=== PATIENT | female | born 1940 | race Caucasian/White ===

== ENCOUNTER 2018-10-30 09:30 | Inpatient (IN) ==
--- NOTE | 2018-10-30 10:08 | ED ---
HPI General Chief Complaint: Trauma Stated Complaint: Fracture Complaint Time Seen by Provider: 10/30/18 09:45 Source: patient, EMS and RN notes reviewed Mode of arrival: EMS Limitations: physical limitation History of Present Illness HPI Narrative: 78-year-old female complains of neck pain. Patient states that she fell yesterday. Patient was found by family member which in between her bed and the wall and had difficulty in getting up. Patient apparently was found lying on the floor for at least 5 hours. Patient was seen at emergency room at [facility] in [facility]. CT scan of the brain and cervical spine were done. CT scan of the brain showed no acute injury. CT cervical spine shows fracture at C1 and possible C2 and possible epidural hematoma dorsal to C2. Neurosurgeon at [facility] was contacted. Patient was transferred to [facility] for further treatment and management. Patient complains of sharp pain localized to the neck. Patient denies any headache. Patient denies any visual change. Patient denies any chest pain or shortness of breath. Patient denies abdominal pain. Patient denies any focal weakness or numbness of the extremity. Patient has history hypertension, hyperlipidemia and rheumatoid arthritis. MD complaint: Reports neck pain Onset (ago): day(s) Place: Reports home Severity: moderate Severity scale (1-10): 7 Quality: Reports sharp Duration: constant Relieving factors: none Exacerbating factors: none Context: Reports fall Associated symptoms: Reports none Treatments prior to arrival: Reports cervical collar Related Data Allergies Allergy/AdvReac Type Severity Reaction Status Date / Time hydroxychloroquine Allergy Unknown Unknown Verified 10/30/18 09:49 cephalexin [From Keflex] Allergy Unknown Verified 10/30/18 09:49 Review of Systems ROS: all other systems reviewed are negative PMFSH History History Provided By: Patient, Medical Record and Court Stenographer / EMT Social History Social History Recent Travel in [facility] within the Last 8 Weeks: No Recent Out of Country Travel within the Last 8 Weeks: No Exam Narrative Exam Narrative: GENERAL: Well-nourished, well-developed patient. SKIN: Focused skin assessment warm/dry. HEAD: Normocephalic. EYES: No scleral icterus. No injection or drainage. NECK: Supple, trachea midline. No JVD or lymphadenopathy. Patient has c-collar in place. CARDIOVASCULAR: Regular rate and rhythm without murmurs, gallops, or rubs. RESPIRATORY: Breath sounds equal bilaterally. No accessory muscle use. GASTROINTESTINAL: Abdomen soft, non-tender, nondistended. MUSCULOSKELETAL: No cyanosis, or edema. BACK: Nontender without obvious deformity. No CVA tenderness. Neurologic exam: Patient is awake and alert oriented x3. No obvious focal logical deficit. Course Initial Documented Vital Signs Temperature 98.6 F 10/30/18 09:50 Pulse Rate 58 L 10/30/18 09:50 Respiratory Rate 17 10/30/18 09:50 Blood Pressure 148/69 H 10/30/18 09:50 Pulse Oximetry 95 10/30/18 09:50 Last Documented Vital Signs Temperature 98.6 F 10/30/18 09:50 Pulse Rate 58 L 10/30/18 09:50 Respiratory Rate 17 10/30/18 09:50 Blood Pressure 148/69 H 10/30/18 09:50 Pulse Oximetry 95 10/30/18 09:50 Medical Decision Making MDM Narrative Medical decision making narrative: 78-year-old female complains of neck pain. CT scan shows fractures of C1 possible C2 and possible epidural hematoma. Patient will be admitted to [facility] with consultation to neurosurgeon. [place] collar applied. Medical Screen Exam Complete: Yes Emergency Medical Condition: Yes Discharge Plan Discharge Disposition Patient Disposition: ED Admit(ED Internal Use Only) Discharge Details Diagnosis: Fracture of cervical vertebra without spinal cord injury Physicians Team ED Provider: Claudio Elias Status ED Status: With Doctor
--- NOTE | 2018-10-30 10:13 | XR ---
EXAM DATE: 10/30/2018 10:06 AM EST AGE/SEX: 78 years / Female INDICATIONS: Evaluate for communicable disease, pneumonia, pneumothorax. CLINICAL DATA: This is the patient's initial encounter. Patient reports that signs and symptoms have been present for 1 day and indicates a pain score of 0/10. MEDICAL/SURGICAL HISTORY: None. None. COMPARISON: POI, XR CHEST PA AND LAT, 09/20/2016. . FINDINGS: There is elevation of the right hemidiaphragm. The heart is mildly prominent. Mild perihilar infiltra perry are noted consistent with possible mild pulmonary vascular congestion versus pneumonia. Clinical correlation is recommended. CONCLUSION: 1. Mild perihilar infiltrates are noted consistent with possible mild pulmonary vascular congestion versus pneumonia. Clinical correlation is recommended. 2. Mild cardiomegaly. 3. Elevation of the right hemidiaphragm. Electronically signed by: Giuseppe Whalen MD Board Certified Radiologist 10/30/2018 10:12 AM EST
[2018-10-30] MEDS ORDERED: Bisacodyl 10 MG Supp RECTAL PRN (10:23)
--- NOTE | 2018-10-30 10:33 | P.HPCC ---
History of Present Illness Service: [facility] Chief Complaint: Neck pain History of Present Illness: 78yF presenting with cervical spine injury. The patient lives on her own ( daughter and son-in-law live next door) and says that last night she was trying to move a pillow from her bed to her rocking chair. She is unsure if she tripped but says that she fell forward, hitting her head on the wall and getting wedged between the bed and the wall. She says that she was lying on the floor for most of the night but this morning was able to crawl to the foot of the bed, retrieved her cell phone, and called her daughter for help. She had soiled herself overnight but states that this was because of immobility and not because she couldn't control her bowel/ bladder. She was able to walk to the shower with assistance and bathe before presenting to the ED at [facility]. There, she had a CT of her brain and C spine performed, which showed fractures of C1/C2 and a possible spinal epidural hematoma. She was transferred to [place] for neurosurgical evaluation. She admits to moderate "aching" neck pain but denies numbness/ tingling/ weakness of her extremities, back pain, or saddle anesthesia. She takes 81 mg aspirin daily for a history of CAD s/p stents (in ), last dose yesterday. Denies use of any other anticoagulants/ antiplatelets. Foreign Service Teacher is Dr. Hernandez. History of rheumatoid arthritis, currently on Xeljanz and methotrexate. Inpatient Certification: I certify that the inpatient services were ordered in accordance with Medicare regulations governing the order. This includes certification that hospital inpatient services are reasonable and necessary and in the case of services not specified as inpatient-only under 42 CFR 419.22(n), that they are appropriately provided as inpatient services in accordance to with the 2-midnight benchmark under 43 CFR 412.3(e) Estimated Total Length of Stay (Days): 5 Plans for Post Hospital Care: Not yet determined Review of Systems All other systems reviewed negative except as stated in HPI Constitutional: Denies chills, Denies fever(s) Eyes: Denies double vision Cardiovascular: Denies chest pain Respiratory: Denies cough Gastrointestinal: Denies abdominal pain Musculoskeletal: Reports neck pain, Denies back pain Neurologic: Denies numbness, Denies tingling PMFSH - History History Provided By: Patient, Medical Record, Gel Coater / EMT - Social History I have reviewed the patient's Social History: Yes - Tobacco History Tobacco Use In Past 30 Days: No Smoking Status: Former smoker - Alcohol History How Often Do You Have a Drink Containing Alcohol: Monthly or less - Substance Use History Substance History: No History of Abuse - Travel History Recent Travel in the [place] Within the Last 8 Weeks: No Recent Travel Out of the Country Within the Last 8 Weeks: No Medications and Allergies Active Medications: Active Medications Acetaminophen (Tylenol) 650 mg PO Q6H PRN PRN Reason: PAIN 1-10 AND/OR FEVER >101F Al Hydroxide/Mg Hydroxide (Milk Of Magnesia Liq) 30 ml PO Q12H PRN PRN Reason: Mild Constipation Albuterol (Duoneb Neb (Prn)) 1 ampul NEB Q2HR NEB PRN PRN Reason: WHEEZING Bisacodyl (Dulcolax Supp) 10 mg RECTAL DAILY PRN PRN Reason: SEVERE CONSITIPATION Chlorhexidine Gluconate (Chlorhexidine 2% Cloth) 3 pack TOPICAL DAILY@0400 ERENDIRA Stop: 11/05/18 03:59 Chlorhexidine Gluconate (Chlorhexidine 2% Cloth) 3 pack TOPICAL DAILY@0400 PRN PRN Reason: Extra cloth needed Stop: 11/05/18 03:59 Famotidine (Pepcid) 20 mg PO BID ERENDIRA Famotidine (Pepcid Pf Inj) 20 mg IV.PUSH Q12HR ERENDIRA Sodium Chloride (Ns Inj) 1,000 mls @ 84 mls/hr IV.CONT .[id number] ERENDIRA Lactulose (Lactulose Liq) 30 ml PO DAILY PRN PRN Reason: SEVERE CONSITIPATION Ondansetron HCl (Zofran Inj) 4 mg IV.PUSH Q6H PRN PRN Reason: NAUSEA OR VOMITING Senna/Docusate Sodium (Loulou-Colace) 1 tab PO BID ERENDIRA Sennosides (Senokot) 17.2 mg PO Q12H PRN PRN Reason: Moderate Constipation Sodium Chloride (Ns Flush) 2 ml IV.FLUSH BID ERENDIRA Sodium Chloride (Ns Flush) 2 ml IV.FLUSH PRN PRN PRN Reason: FLUSH AFTER USING IV ACCESS Allergies Allergy/AdvReac Type Severity Reaction Status Date / Time hydroxychloroquine Allergy Unknown Unknown Verified 10/30/18 09:49 cephalexin [From Keflex] Allergy Unknown Verified 10/30/18 09:49 Home Medications Medication Instructions Recorded Confirmed Type amlodipine 2.5 mg PO DAILY 10/30/18 10/30/18 History aspirin 81 mg PO DAILY 10/30/18 10/30/18 History atenolol 50 mg PO DAILY 10/30/18 10/30/18 History atorvastatin 10 mg PO DAILY 10/30/18 10/30/18 History bevacizumab [Avastin] 1 ml 10/30/18 History furosemide 20 mg PO DAILY 10/30/18 10/30/18 History levothyroxine 137 mcg PO DAILY 10/30/18 10/30/18 History methotrexate 10 mg/m2 PO QWEEK 10/30/18 10/30/18 History potassium chloride 10 meq PO DAILY 10/30/18 10/30/18 History Results - Labs CBC & Chem 7: 10/30/18 12:54 10/30/18 12:54 - Imaging Impressions Chest X-Ray 10/30/18 09:49 CONCLUSION: 1. Mild perihilar infiltrates are noted consistent with possible mild pulmonary vascular congestion versus pneumonia. Clinical correlation is recommended. 2. Mild cardiomegaly. 3. Elevation of the right hemidiaphragm. CT cervical spine from [facility]: 1. Acute burst fracture of C1 w 6mm diastasis of the anterior arch, and lateral subluxation of the right lateral mass of C1 relative to the right occipital condyle and C2. Prevertebral soft tissue swelling around C1-2. 2. Acute, nondisplaced comminuted fracture of the right occipital condyle. 3. Punctate acute ossific fracture fragment dorsal to the dens may represent an avulsion fracture of C2. 4. Findings concerning for small epidural hematoma dorsal to C2, resulting in mild canal stenosis at the craniocervical junction. 5. Mild widening of the anterior disc space at C3-4 may indicate disruption of the anterior longitudinal ligament vs. ligamentous laxity secondary to rheumatoid arthritis. 6. Multilevel cervical spondylosis with facet arthropathy resulting in neural foraminal narrowing. CT brain: 1. Age-indeterminate lacunar infarcts involving the right caudate nucleus and right thalamus, likely remote. No acute hemorrhage. 2. Diffuse involutional change and chronic microvascular ischemia. Exam Vital signs: Vital Signs 10/30/18 09:50 Temperature 98.6 F Pulse Rate 58 L Respiratory Rate 17 Blood Pressure 148/69 H Pulse Oximetry 95 Intake & Output 10/29/18 10/30/18 10/30/18 18:59 06:59 18:59 Weight 58.967 kg Narrative: GEN: Pleasant elderly female lying in bed, no acute distress HEENT: No apparent head or facial trauma, pupils 3 mm and reactive bilaterally NECK: Trachea midline, appropriately-sized cervical collar in place CARDIO: Regular rate and rhythm PULM: Clear to auscultation bilaterally ABD/GI: Soft, non-distended, non-tender in all quadrants EXT/MSK: No peripheral edema SKIN: Warm and well-perfused, no rashes or lesions NEURO: GCS 15, A&Ox3, speech clear and fluent, motor strength 5/5 in all extremities, no drift, sensation intact to all extremities, no focal neuro deficits PSYCH: Appropriate affect Caprini VTE Risk Assessment Caprini VTE Risk Assessment: Moderate/High Risk (score >= 2) VTE Pharmacological Exception Reason: Active bleeding Caprini Risk Assessment Model: Point Value = 1 Point Value = 2 Point Value = 3 Point Value = 5 Age 41-60 Minor surgery BMI > 25 kg/m2 Swollen legs Varicose veins or History of unexplained or recurrent spontaneous Oral contraceptives or hormone replacement Sepsis (< 1 month) Serious lung disease, including pneumonia (< 1 month) Abnormal pulmonary function Acute myocardial infarction Congestive heart failure (< 1 month) History of inflammatory bowel disease Medical patient at bed rest Age 61-74 Arthroscopic surgery Major open surgery (> 45 min) Laparoscopic surgery (> 45 min) Malignancy Confined to bed (> 72 hours) Immobilizing plaster cast Central venous access Age >= 75 History of VTE Family history of VTE Factor V Leiden Prothrombin [id number] Lupus anticoagulant Anticardiolipin antibodies Elevated serum homocysteine Heparin-induced thrombocytopenia Other congenital or acquired thrombophilia Stroke (< 1 month) Elective arthroplasty Hip, pelvis, or leg fracture Acute spinal cord injury (< 1 month) Prophylaxis Regimen: Total Risk Factor Score Risk Level Prophylaxis Regimen 0-1 Low Early ambulation 2 Moderate Order ONE of the following: *Sequential Compression Device (SCD) *Heparin 5000 units SQ BID 3-4 Higher Order ONE of the following medications: *Heparin 5000 units SQ TID *Enoxaparin/Lovenox 40 mg SQ daily (WT < 150 kg, CrCl > 30 mL/min) *Enoxaparin/Lovenox 30 mg SQ daily (WT < 150 kg, CrCl > 10-29 mL/min) *Enoxaparin/Lovenox 30 mg SQ BID (WT < 150 kg, CrCl > 30 mL/min) AND/OR *Sequential Compression Device (SCD) 5 or more Highest Order ONE of the following medications: *Heparin 5000 units SQ TID (Preferred with Epidurals) *Enoxaparin/Lovenox 40 mg SQ daily (WT < 150 kg, CrCl > 30 mL/min) *Enoxaparin/Lovenox 30 mg SQ daily (WT < 150 kg, CrCl > 10-29 mL/min) *Enoxaparin/Lovenox 30 mg SQ BID (WT < 150 kg, CrCl > 30 mL/min) AND *Sequential Compression Device (SCD) Assessment and Plan - Assessment and Plan Plan: 78yF presenting with C1/2 spinal fractures and spinal epidural hematoma s/p mechanical fall at home NEURO: C1 burst fracture C2 avulsion fracture Right occipital condyle fracture Suspected spinal epidural hematoma at C2 Suspected disruption of anterior longitudinal ligament -Cervical collar placed, spinal precautions (log roll only, bed rest for now, HOB elevated) -Stat MRI C spine -q1h neuro checks -Avoid anticoagulants/ antiplatelets -Possible ALL injury vs. ligamentous instability (this is known to be associated with rheumatoid arthritis) -Pain control -Neurosurgery consulted (Dr. Galvan) -Consult trauma CARDIO: History of CAD s/p stents History of essential hypertension History of dyslipidemia -Hold aspirin -Check P2Y12 assay -Continue home antihypertensives and statin PULM: -Incentive spirometry F/E/N: -NPO for now -Maintenance fluids -ICU electrolyte protocol MSK/RHEUM: History of rheumatoid arthritis -Continue DMARDs ENDO: History of hypothyroidism -Continue home dose of synthroid PROPHY: -PPI -SCDs, hold chemical prophylaxis as patient has suspected epidural hematoma OVERALL: This patient is critically ill with high C spine injury. She is at high risk for rapid decompensation and requires ICU level of care. Counseling/ Coordination of Care: This patient is critically ill with impairment of one or more vital organ systems with a high probability of imminent or life-threatening deterioration. High-complexity medical decision making was required to support vital organ function and/ or prevent deterioration of the patient's condition. Total critical care time spent is 42 minutes giving full attention to this patient. This includes examining the patient, gathering history from someone other than the patient (i.e. chart review), discussing the patient's care with other providers, ordering and interpreting radiologic studies, ordering and interpreting laboratory values, and documentation. Amount of time is separate from teaching, counseling the patient and/or family, and exclusive of procedures. Code Status: DNR but accepts intubation Discussed Condition With: Dr. Galvan (neurosurgery), Dr. Garcia (trauma)
--- NOTE | 2018-10-30 12:19 | MR ---
EXAM DATE: 10/30/2018 11:59 AM EST AGE/SEX: 78 years / Female INDICATIONS: Fracture. Fall. CLINICAL DATA: This is the patient's initial encounter. Patient reports that signs and symptoms have been present for 1 day and indicates a pain score of 0/10. MEDICAL/SURGICAL HISTORY: Cardiovascular disease. Arthritis. Coronary artery stent. Cholecyst ectomy. Hysterectomy. Bilateral knee replacements. Hand surgeries, feet surgeries. COMPARISON: No prior exams available for comparison. TECHNIQUE: Multiplanar, multisequence MRI examination of the cervical spine was performed without co ntrast. FINDINGS: The marrow signal appears intact, and the spinal cord appears intact for technique. C2-C3: No appreciable compromise to the thecal sac, exiting nerve roots are seen. The neural foramin a are patent bilaterally. No appreciable thecal sac stenosis is seen. C3-C4: There is slight neural foramina compromise on the left due to asymmetrical bulging disc and h ypertrophic changes. There may be slight neural foraminal compromise on the right as well. C4-C5: There is slight neural foramina compromise on the right due to asymmetrical bulging disc and hypertrophic changes. C5-C6: There is slight neural foramina compromise bilaterally due to bulging disc and hypertrophic c hanges. C6-C7: There is slight neural foramina compromise bilaterally due to bulging disc and hypertrophic c hanges. There is anterior extradural impression and effacement of the anterior CSF space due to bulging disc and hypertrophic changes, however overall no significant thecal sac stenosis is seen. There is anterior extradural impression and effacement of the anterior CSF space due to central disc protrusion and hypertrophic changes, however overall no significant thecal sac stenosis is seen. C7-T1: No appreciable compromise to the thecal sac, exiting nerve roots are seen. The neural foramin a are patent bilaterally. No appreciable thecal sac stenosis is seen. CONCLUSION: Neural foramina compromise at multiple levels with effacement of the anterior CSF space C5-6 and C6-7 without any significant thecal sac stenosis. Electronically signed by: Anand Louie MD Board Certified Radiologist 10/30/2018 12:18 PM EST
--- NOTE | 2018-10-30 13:52 | CT ---
EXAM DATE: 10/30/2018 1:32 PM EST AGE/SEX: 78 years / Female INDICATIONS: Trauma, fall. C1 and C2 fracture. Patient transferred from [facility]. CLINICAL DATA: This is the patient's initial encounter. Patient reports that signs and symptoms have been present for 2 days and indicates a pain score of 6/10. MEDICAL/SURGICAL HISTORY: Cardiovascular disease. Arthritis. Cholecystectomy. Hysterectomy. Coronary artery stent. RADIATION DOSE: 17.08 CTDI (mGy) COMPARISON: MRI cervical spine performed the same day. TECHNIQUE: Contiguous axial images were obtained using helical multirow detector technique. The vol umetric data was post-processed with multiplanar reconstruction in oblique axial, sagittal, and coron al planes. Using automated exposure control and adjustment of the mA and/or kV according to patient s ize, radiation dose was kept as low as reasonably achievable to obtain optimal diagnostic quality florencio ges. DICOM format image data is available electronically for review and comparison. FINDINGS: No significant subluxation or soft tissue swelling is seen. There is a fracture of the lateral mass o f C1 on the right side with tiny bony fragment protruding adjacent to the tip of the dens at this sit e. There may be tiny fractures coming off the tip of the dens as well. Questionable hairline fracture of the basiocciput both on the right side as well. C2-C3: No appreciable compromise to the thecal sac, exiting nerve roots are seen. The neural foramin a are patent bilaterally. No appreciable thecal sac stenosis is seen. C3-C4: There is slight neural foramina compromise on the left due to asymmetrical bulging disc and h ypertrophic changes. Slight bulging disc and hypertrophic changes are seen with indentation on the thecal sac and no significant compromise to the thecal sac or the exiting nerve roots. C4-C5: There is slight neural foramina compromise on the right due to asymmetrical bulging disc and hypertrophic changes. Slight bulging disc and hypertrophic changes are seen with indentation on the thecal sac and no significant compromise to the thecal sac or the exiting nerve roots. C5-C6: There is slight neural foramina compromise bilaterally due to bulging disc and hypertrophic c hanges. Slight bulging disc and hypertrophic changes are seen with indentation on the thecal sac an d no significant compromise to the thecal sac or the exiting nerve roots. C6-C7: No appreciable compromise to the thecal sac, exiting nerve roots are seen. The neural foramin a are patent bilaterally. No appreciable thecal sac stenosis is seen. Slight bulging disc and hypertr ophic changes are seen with indentation on the thecal sac and no significant compromise to the thecal sac or the exiting nerve roots. There is anterior extradural impression and effacement of the anter ior CSF space due to central disc protrusion and hypertrophic changes, however overall no significant thecal sac stenosis is seen. C7-T1: No appreciable compromise to the thecal sac, exiting nerve roots are seen. The neural foramin a are patent bilaterally. No appreciable thecal sac stenosis is seen. CONCLUSION: There are fractures of the lateral mass of C1 on the right and basioccipital with tiny b neyda fragment protruding adjacent to the tip of the dens at the junction of the lateral mass of C1 wit hout any significant compromise to the exiting nerve roots or the thecal sac. These fractures were no t appreciated on the patient's MRI examination due to technique and superimposed degenerative changes atlantoaxial space. No appreciable subluxation. Electronically signed by: Anand Louie MD Board Certified Radiologist 10/30/2018 1:50 PM EST
[2018-10-30] MEDS: Atenolol 50 MG Tablet PO SCH (14:00)
[2018-10-30] MEDS: amLODIPine 5 MG Tablet PO SCH (14:00)
[2018-10-30 14:20] LABS: Baso % (Auto) 0.5 % (0.0-2.0); Eos % (Auto) 0.1 % (0.0-4.0); Hematocrit 33.7 % (35.0-46.0); Hemoglobin 11.7 gm/dL (11.6-15.3); Lymph # (Auto) 0.6 th/mm3 (1.0-4.8); Lymph % (Auto) 13.6 % (9.0-44.0); Mean Corpuscular HGB Conc 34.7 % (32.0-36.0); Mean Corpuscular Hemoglobin 30.9 pg (27.0-34.0); Mean Platelet Volume 8.1 fL (7.0-11.0); Mono # (Auto) 0.4 th/mm3 (0.0-0.9); Neut # (Auto) 3.6 th/mm3 (1.8-7.7); Neut % (Auto) 76.8 % (16.0-70.0); Platelet Count 216 th/mm3 (150-450); Red Blood Count 3.79 mil/mm3 (4.00-5.30); Red Cell Distribution Width 15.2 % (11.6-17.2); White Blood Count 4.7 th/mm3 (4.0-11.0)
[2018-10-30 14:25] LABS: INR 1.1 Ratio; Prothrombin Time 10.8 sec (9.8-11.6)
[2018-10-30 14:36] LABS: Albumin 3.7 g/dL (3.4-5.0); Anion Gap 9 meq/L (5-15); Aspartate Aminotransferase 142 U/L (15-37); Blood Urea Nitrogen 13 mg/dL (7-18); Calcium 8.5 mg/dL (8.5-10.1); Carbon Dioxide 27.5 meq/L (21.0-32.0); Chloride 100 meq/L (98-107); Glomerular Filtration Rate 78 mL/min (>89); Glucose,Random 111 mg/dL (74-106); Potassium 3.6 meq/L (3.5-5.1); Sodium 136 meq/L (136-145)
[2018-10-30 14:38] LABS: Creatine Kinase 126 U/L (26-192)
[2018-10-30 14:39] LABS: Alanine Aminotransferase 73 U/L (10-53); Alkaline Phosphatase 100 U/L (45-117); Total Protein 7.8 g/dL (6.4-8.2)
[2018-10-30] MEDS ORDERED: Potassium Chlor 40 mEq Premix 40 MEQ/100 ML PIGGYBACK IV.SIG PRN ×2 (14:39)
[2018-10-30] MEDS ORDERED: Magnesium Sulfate Inj 2 GM in Sodium Chlor 0.9% Inj 96 ML IV.SIG PRN (14:39)
[2018-10-30] MEDS ORDERED: Magnesium Sulfate Inj 4 GM in Sodium Chlor 0.9% Inj 92 ML IV.SIG PRN (14:39)
[2018-10-30] MEDS ORDERED: Sodium Phosphate Inj 30 MMOL in Sodium Chlor 0.9% Inj 250 ML IV.SIG PRN (14:39)
[2018-10-30] MEDS ORDERED: Potassium Phosphate 500 MG Soluble Tablet PO PRN ×2 (14:39)
[2018-10-30] MEDS ORDERED: Potassium Chloride Liq 20 MEQ/15 ML UDC PO PRN ×2 (14:39)
[2018-10-30] MEDS ORDERED: Magnesium Oxide 400 MG Tablet PO PRN (14:39)
[2018-10-30] MEDS ORDERED: Potassium Chlor 20 mEq Premix 20 MEQ/100 ML PIGGYBACK IV.SIG PRN ×2 (14:39)
[2018-10-30] MEDS ORDERED: Potassium Phosphate Inj 30 MMOL in Sodium Chlor 0.9% Inj 250 ML IV.SIG PRN (14:39)
[2018-10-30 15:09] LABS: Creatine Kinase MB 2.8 ng/mL (0.5-3.6)
--- NOTE | 2018-10-30 15:46 | P.CONNS ---
History of Present Illness Service: ED Primary Care Provider: Camelia George DO Chief Complaint: Neck pain History of Present Illness: 78yoF who fell yesterday evening wedging herself next to her bed, striking the back of her head with neck pain. She could not call for help until 3:30 this morning, mostly due to neck pain. Outside imaging suggested C1 burst fx and C2 dens fx with possible epidural hematoma behind C2. Patient has remained neurologically intact, with severe neck pain. Has a history of Rheumatoid Arthritis and several operations in the past 5 years (bilateral knees, emergency gallbladder). Complains of neck pain at this time. 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 - Tobacco History Second Hand Smoke Exposure: No Tobacco Use In Past 30 Days: No Smoking Status: Former smoker Tobacco Type: Cigarettes - Alcohol History How Often Do You Have a Drink Containing Alcohol: Monthly or less - Substance Use History Substance History: No History of Abuse - Travel History Recent Travel in the [place] Within the Last 8 Weeks: No Recent Travel Out of the Country Within the Last 8 Weeks: No - Immunization History Tetanus Immunization: Unsure Hx Influenza Vaccine This Season: Yes Medications and Allergies Active Medications: Active Medications Acetaminophen (Tylenol) 650 mg PO Q6H PRN PRN Reason: FEVER >101F Al Hydroxide/Mg Hydroxide (Milk Of Magnesia Liq) 30 ml PO Q12H PRN PRN Reason: Mild Constipation Albuterol (Duoneb Neb (Prn)) 1 ampul NEB Q2HR NEB PRN PRN Reason: WHEEZING Amlodipine Besylate (Norvasc) 2.5 mg PO DAILY [facility] Last Admin: 10/30/18 14:00 Dose: 2.5 mg Atenolol (Tenormin) 50 mg PO DAILY [facility] Last Admin: 10/30/18 14:00 Dose: 50 mg Atorvastatin Calcium (Lipitor) 10 mg PO DAILY [facility] Last Admin: 10/30/18 14:01 Dose: 10 mg Bisacodyl (Dulcolax Supp) 10 mg RECTAL DAILY PRN PRN Reason: SEVERE CONSITIPATION Chlorhexidine Gluconate (Chlorhexidine 2% Cloth) 3 pack TOPICAL DAILY@0400 [facility] Stop: 11/05/18 03:59 Chlorhexidine Gluconate (Chlorhexidine 2% Cloth) 3 pack TOPICAL DAILY@0400 PRN PRN Reason: Extra cloth needed Stop: 11/05/18 03:59 Famotidine (Pepcid) 20 mg PO BID [facility] Famotidine (Pepcid Pf Inj) 20 mg IV.PUSH Q12HR [facility] Furosemide (Lasix) 20 mg PO DAILY [facility] Sodium Chloride (Ns Inj) 1,000 mls @ 84 mls/hr IV.CONT .[id number] [facility] Magnesium Sulfate 4 gm/ Sodium (Chloride) 100 mls @ 50 mls/hr IV.SIG UNSCH PRN PRN Reason: For Magnesium 0.9 - 1.1 mg/dL Magnesium Sulfate 2 gm/ Sodium (Chloride) 100 mls @ 50 mls/hr IV.SIG UNSCH PRN PRN Reason: For Magnesium 1.2 - 1.6 mg/dL Potassium Chloride (Kcl 40 Meq Premix Inj) 40 meq in 100 mls @ 25 mls/hr IV.SIG Q2H PRN PRN Reason: For Potassium 2.8 - 3.2 mEq/L Potassium Chloride (Kcl 20 Meq Premix Inj) 20 meq in 100 mls @ 50 mls/hr IV.SIG Q2H PRN PRN Reason: For Potassium 3.3 - 3.5 mEq/L Potassium Chloride (Kcl 40 Meq Premix Inj) 40 meq in 100 mls @ 25 mls/hr IV.SIG UNSCH PRN PRN Reason: For Potassium 3.3 - 3.5 mEq/L Potassium Chloride (Kcl 20 Meq Premix Inj) 20 meq in 100 mls @ 50 mls/hr IV.SIG Q2H PRN PRN Reason: For Potassium 2.8 - 3.2 mEq/L Sodium Phosphate 30 mmol/ (Sodium Chloride) 260 mls @ 42 mls/hr IV.SIG UNSCH PRN PRN Reason: For Phosphorus < 2.5 mg/dL Potassium Phosphate 30 mmol/ (Sodium Chloride) 260 mls @ 42 mls/hr IV.SIG UNSCH PRN PRN Reason: SEE LABEL COMMENTS Lactulose (Lactulose Liq) 30 ml PO DAILY PRN PRN Reason: SEVERE CONSITIPATION Levothyroxine Sodium (Synthroid) 112 mcg PO DAILY@0600 [facility] Levothyroxine Sodium (Synthroid) 25 mcg PO DAILY@0600 [facility] Magnesium Oxide (Mag-Ox) 800 mg PO UNSCH PRN PRN Reason: For Magnesium 1.2 - 1.6 mg/dL Methotrexate (Rheumatrex) 10 mg PO Q7D [facility] Miscellaneous (Pill Splitter) 1 each OTHER UNSCH PRN PRN Reason: SEE LABEL COMMENTS Ondansetron HCl (Zofran Inj) 4 mg IV.PUSH Q6H PRN PRN Reason: NAUSEA OR VOMITING Oxycodone HCl (Roxicodone) 5 mg PO Q4H PRN PRN Reason: PAIN SCALE 6 TO 10 Last Admin: 10/30/18 14:01 Dose: 5 mg Oxycodone HCl (Roxicodone) 2.5 mg PO Q4H PRN PRN Reason: PAIN SCALE 1 TO 5 Potassium Chloride (Kcl Liq) 40 meq PO UNSCH PRN PRN Reason: Potassium level 3.3-3.5 mEq/L Potassium Chloride (Kcl Liq) 40 meq PO UNSCH PRN PRN Reason: Potassium level 3.3-3.5 mEq/L Potassium Phosphate (K-Phos Original) 2,000 mg PO Q4H PRN PRN Reason: Phosphorus Less Than 2.5 mg/dL Potassium Phosphate (K-Phos Original) 2,000 mg PO UNSCH PRN PRN Reason: SEE LABEL COMMENTS Senna/Docusate Sodium (Loulou-Colace) 1 tab PO BID [facility] Sennosides (Senokot) 17.2 mg PO Q12H PRN PRN Reason: Moderate Constipation Sodium Chloride (Ns Flush) 2 ml IV.FLUSH BID [facility] Sodium Chloride (Ns Flush) 2 ml IV.FLUSH UNSCH PRN PRN Reason: FLUSH AFTER USING IV ACCESS Tizanidine HCl (Zanaflex) 4 mg PO Q12H PRN PRN Reason: SPASM Allergies Allergy/AdvReac Type Severity Reaction Status Date / Time hydroxychloroquine Allergy Unknown Unknown Verified 10/30/18 09:49 cephalexin [From Keflex] Allergy Unknown Verified 10/30/18 09:49 Home Medications Medication Instructions Recorded Confirmed Type amlodipine 2.5 mg PO DAILY 10/30/18 10/30/18 History aspirin 81 mg PO DAILY 10/30/18 10/30/18 History atenolol 50 mg PO DAILY 10/30/18 10/30/18 History atorvastatin 10 mg PO DAILY 10/30/18 10/30/18 History bevacizumab [Avastin] 1 ml 10/30/18 History furosemide 20 mg PO DAILY 10/30/18 10/30/18 History levothyroxine 137 mcg PO DAILY 10/30/18 10/30/18 History methotrexate 10 mg/m2 PO QWEEK 10/30/18 10/30/18 History potassium chloride 10 meq PO DAILY 10/30/18 10/30/18 History Exam Vital signs: Vital Signs 10/30/18 09:50 10/30/18 11:14 10/30/18 11:52 Temperature 98.6 F Pulse Rate 58 L Respiratory Rate 17 Blood Pressure 148/69 H Pulse Oximetry 95 96 99 10/30/18 11:54 10/30/18 12:00 10/30/18 12:06 Temperature 98.4 F Pulse Rate 60 56 L 57 L Respiratory Rate 24 23 23 Blood Pressure 151/68 H 144/57 H 145/64 H Pulse Oximetry 100 99 100 10/30/18 12:22 10/30/18 12:36 10/30/18 13:00 Temperature Pulse Rate 68 56 L 55 L Respiratory Rate 16 21 20 Blood Pressure 160/71 H 159/70 H Pulse Oximetry 99 100 100 10/30/18 13:06 10/30/18 13:36 10/30/18 14:00 Temperature Pulse Rate 57 L 59 L 53 L Respiratory Rate 24 33 H 29 H Blood Pressure 155/69 H 151/65 H Pulse Oximetry 98 99 99 10/30/18 14:06 10/30/18 14:07 Temperature Pulse Rate 57 L 59 L Respiratory Rate 28 H 23 Blood Pressure 151/101 H 159/67 H Pulse Oximetry 95 98 Intake & Output 10/29/18 10/30/18 10/30/18 18:59 06:59 18:59 Intake Total 0 / 0 Balance 0 / 0 Weight 62 kg Intake: Oral 0 / 0 Other: Weight On Admission 62 kg Narrative: A&O x 3 CN II-XII intact C/o neck pain Collar seems to help Moving all 4 extremities with full strength Results - Laboratory Findings CBC and BMP: 10/30/18 12:54 10/30/18 12:54 Abnormal lab findings: Abnormal Labs 10/30/18 10/30/18 12:54 12:54 RBC 3.79 L Hct 33.7 L Neut % (Auto) 76.8 H [place] % (Auto) 9.0 H Lymph # (Auto) 0.6 L Estimated GFR 78 L Random Glucose 111 H AST 142 H ALT 73 H Assessment and Plan - Plan 78yoF with right c1 anterior and posterior arch fractures ([place]) with right occipital condyle fracture, question minor dens fracture. MRI C-spine: ligamentous injury at C1 posteriorly, rheumatoid pannus behind C2 ( not hematoma). Plan: Will attempt mobilization with a Amelia J collar all the time. If neck pain is persistent or not improved next few days, could consider a surgical stabilization procedure. At this point, this fracture morphology should heal, will attempt symptomatic pain relief. Her HOB can be up as tolerated and she can mobilize out of bed with assistance and PT. If neck pain is worsening, would reimage with lateral C-spine xrays and or CT. May eat. Discussed prognosis with patient and her daughters-- prolonged neck immobilzation but we will take this day by day symptomatically.
[2018-10-30] MEDS: Sod Chloride 0.9% Inj 1,000 ML IV.CONT SCH (16:45)
[2018-10-30 17:39] LABS: Bilirubin,Urine Negative (Negative); Clarity,Urine Clear (Clear); Color,Urine Yellow (Yellw/Straw); Glucose,Urine (UA) Negative (Negative); Leukocyte Esterase,Urine Negative (Negative); Nitrite,Urine Negative (Negative); Specific Gravity,Urine 1.018 (1.002-1.035)
--- NOTE | 2018-10-30 17:46 | MB ---
cc: Cyril Garcia MD DATE: 10/30/2018 REASON FOR CONSULTATION: Trauma transfer. CAREER ORIENTATION TEACHER: Dr. Galvan. HISTORY OF PRESENT ILLNESS: The patient is an 78-year-old female who presents status post fall. The patient was noted to live on her own with daughter and son-in-law next door. She was trying to get up out of her rocking chair to her bed and tripped and fell, hitting her head on the wall. She was wedged in between the bed and the wall and was down for several hours. She was transferred to the emergency department at [facility], where CT head was negative and CT C-spine with C1-C2 fracture, and spinal subdural hematoma. She was transferred to [place] for definitive care. The patient denies any numbness or tingling. She is neurologically intact. GCS is 15. Hemodynamically stable. PAST MEDICAL HISTORY: Hypertension. PAST SURGICAL HISTORY: Cholecystectomy, appendectomy, knee surgery x 2, cardiac stents. SOCIAL HISTORY: Denies smoking, ETOH or IVDA. ALLERGIES: NO MEDICAL ALLERGIES. MEDICATIONS: See EMR. FAMILY HISTORY: Denies diabetes or hypertension. REVIEW OF SYSTEMS: GENERAL: Denies fevers or chills. HEENT: Denies eye pain, ear pain, complaint of neck pain. LUNGS: Denies cough or wheeze. HEART: Denies palpitations, chest pain. ABDOMEN: Denies nausea or vomiting. GENITOURINARY: Denies dysuria or hematuria, polyuria or polydipsia. INTEGUMENT: Denies any mass or lesions. PHYSICAL EXAMINATION: GENERAL: The patient in no acute distress. VITAL SIGNS: Temperature 98.6, pulse 56, respirations 20, blood pressure 144/63, saturation 90%. HEENT: Pupils equal, round, reactive. Trachea midline. LUNGS: Clear to auscultation. NECK: In C-collar. C-spine, no tenderness. Clavicles nontender. HEART: S1, S2. Regular. ABDOMEN: Soft, nontender, nondistended. EXTREMITIES: Warm and well perfused. NEUROLOGIC: GCS 15. She has 5/5 motor in all extremities. Neck immobilized in C-collar. BACK: No step-offs, no tenderness to palpation posterior cervical spine. PSYCHIATRIC: Appropriate mood, appropriate insight. LABORATORY AND DIAGNOSTIC DATA: WBC 4.7, hemoglobin 11.7, hematocrit 33.7, platelets 216. Sodium 136, potassium 3.6, chloride is 100, BUN is 13, creatinine 0.7, AST of 142, ALT 73, albumin 3.7. CT is reviewed by myself. CT head: No evidence of acute intracranial pathology. CT C-spine: A C1-C2 fracture with epidural hematoma. ASSESSMENT: The patient is an 78-year-old female status post trip and fall, with C1-C2 fracture. PLAN: After further work up of the patient with the above-named issues, at this point, the patient is admitted to the ICU with solar installation technician consult. The patient was seen by Dr. Galvan, who is recommending a cervical collar and close observation, possible operative intervention if pain does not improve. The patient will be monitored closely with every 1 hour neurologic checks, immobilization, C-collar, pain control, IV fluids. I discussed with the patient in detail. MD SINDHU Preciado/aryan , 05:14 PM , 05:23 PM
[2018-10-30] MEDS: Acetaminophen 325 MG Tablet PO PRN (19:05)
[2018-10-30] MEDS: Senna/Docusate Sodium 8.6/50 MG Tablet PO SCH (21:22)
[2018-10-30] MEDS: Famotidine PF Inj 20 MG/2 ML Vial IV.PUSH SCH (21:23)
[2018-10-30] MEDS: Famotidine 20 MG Tablet PO SCH (21:23)
[2018-10-30] MEDS: Heparin - SQ 10,000 UNITS/ML Vial SQ SCH (21:23)
[2018-10-31] MEDS ORDERED: Chlorhexidine Gluconate 2% 1 Pack (2 Cloths) TOPICAL PRN (04:00)
[2018-10-31 05:10] LABS: Baso % (Auto) 0.3 % (0.0-2.0); Eos % (Auto) 0.9 % (0.0-4.0); Hematocrit 32.5 % (35.0-46.0); Lymph # (Auto) 0.5 th/mm3 (1.0-4.8); Lymph % (Auto) 9.3 % (9.0-44.0); Mean Corpuscular HGB Conc 33.9 % (32.0-36.0); Mean Corpuscular Hemoglobin 30.2 pg (27.0-34.0); Mean Corpuscular Volume 89.1 fL (80.0-100.0); Mean Platelet Volume 7.9 fL (7.0-11.0); Mono # (Auto) 0.5 th/mm3 (0.0-0.9); Neut # (Auto) 4.5 th/mm3 (1.8-7.7); Neut % (Auto) 80.5 % (16.0-70.0); Platelet Count 216 th/mm3 (150-450); Red Blood Count 3.65 mil/mm3 (4.00-5.30); Red Cell Distribution Width 15.4 % (11.6-17.2); White Blood Count 5.6 th/mm3 (4.0-11.0)
[2018-10-31 05:14] LABS: Activated Partial Thrombo Time 27.3 sec (23.4-31.7); INR 1.1 Ratio
[2018-10-31 05:31] LABS: Calcium 8.2 mg/dL (8.5-10.1); Carbon Dioxide 27.5 meq/L (21.0-32.0); Magnesium 2.1 mg/dL (1.5-2.5); Potassium 3.8 meq/L (3.5-5.1)
[2018-10-31] MEDS: Sod Chloride 0.9% Inj 1,000 ML IV.CONT SCH (07:07)
[2018-10-31] MEDS: Chlorhexidine Gluconate 2% 1 Pack (2 Cloths) TOPICAL SCH (07:07)
[2018-10-31] MEDS: Heparin - SQ 10,000 UNITS/ML Vial SQ SCH ×3 (07:08→22:27)
[2018-10-31] MEDS: Levothyroxine 112 MCG Tablet PO SCH (07:09)
[2018-10-31] MEDS ORDERED: Non-Formulary Drug (Levothyroxine [Levothyroxine] 137 MCG) PO SCH (09:00)
--- NOTE | 2018-10-31 09:01 | P.PNCC ---
Subjective Subjective Remarks/Hospital Course: 78yF presenting with cervical spine injury. The patient lives on her own ( daughter and son-in-law live next door) and says that last night she was trying to move a pillow from her bed to her rocking chair. She is unsure if she tripped but says that she fell forward, hitting her head on the wall and getting wedged between the bed and the wall. She says that she was lying on the floor for most of the night but this morning was able to crawl to the foot of the bed, retrieved her cell phone, and called her daughter for help. She had soiled herself overnight but states that this was because of immobility and not because she couldn't control her bowel/ bladder. She was able to walk to the shower with assistance and bathe before presenting to the ED at [facility]. There, she had a CT of her brain and C spine performed, which showed fractures of C1/C2 and a possible spinal epidural hematoma. She was transferred to [place] for neurosurgical evaluation. She admits to moderate "aching" neck pain but denies numbness/ tingling/ weakness of her extremities, back pain, or saddle anesthesia. 10/31: No overnight events, patient had MRI C spine performed yesterday which showed no epidural hematoma, plan is for conservative neurosurgical management with Nicky Nicholson for several weeks. Patient tolerating PO diet, offers no complaints. Objective Vital Signs / I&O: Vital Signs 10/30/18 09:50 10/30/18 11:14 10/30/18 11:52 Temperature 98.6 F Pulse Rate 58 L Respiratory Rate 17 Blood Pressure 148/69 H Pulse Oximetry 95 96 99 10/30/18 11:54 10/30/18 12:00 10/30/18 12:06 Temperature 98.4 F Pulse Rate 60 56 L 57 L Respiratory Rate 24 23 23 Blood Pressure 151/68 H 144/57 H 145/64 H Pulse Oximetry 100 99 100 10/30/18 12:22 10/30/18 12:36 10/30/18 13:00 Temperature Pulse Rate 68 56 L 55 L Respiratory Rate 16 21 20 Blood Pressure 160/71 H 159/70 H Pulse Oximetry 99 100 100 10/30/18 13:06 10/30/18 13:36 10/30/18 14:00 Temperature Pulse Rate 57 L 59 L 53 L Respiratory Rate 24 33 H 29 H Blood Pressure 155/69 H 151/65 H Pulse Oximetry 98 99 99 10/30/18 14:06 10/30/18 14:07 10/30/18 14:36 Temperature Pulse Rate 57 L 59 L 53 L Respiratory Rate 28 H 23 18 Blood Pressure 151/101 H 159/67 H 154/65 H Pulse Oximetry 95 98 99 10/30/18 15:00 10/30/18 15:06 10/30/18 15:36 Temperature Pulse Rate 53 L 56 L 56 L Respiratory Rate 21 23 24 Blood Pressure 148/64 H 169/67 H Pulse Oximetry 100 99 99 10/30/18 16:00 10/30/18 16:06 10/30/18 17:00 Temperature 98.6 F Pulse Rate 56 L 55 L 66 Respiratory Rate 20 23 22 Blood Pressure 144/63 H Pulse Oximetry 99 99 86 L 10/30/18 17:06 10/30/18 17:36 10/30/18 17:55 Temperature Pulse Rate 61 63 Respiratory Rate 30 H 24 Blood Pressure 131/60 143/66 H Pulse Oximetry 97 100 96 10/30/18 18:00 10/30/18 18:06 10/30/18 18:36 Temperature Pulse Rate 66 64 65 Respiratory Rate 22 23 15 Blood Pressure 128/90 139/63 Pulse Oximetry 99 99 96 10/30/18 19:00 10/30/18 19:06 10/30/18 19:36 Temperature 101.9 F H Pulse Rate 67 70 62 Respiratory Rate 17 36 H 25 H Blood Pressure 137/63 142/63 H Pulse Oximetry 99 95 94 L 10/30/18 20:00 10/30/18 20:06 10/30/18 20:26 Temperature 100.8 F H Pulse Rate 63 61 Respiratory Rate 24 19 Blood Pressure 134/58 L Pulse Oximetry 97 95 93 L 10/30/18 20:36 10/30/18 21:00 10/30/18 21:06 Temperature Pulse Rate 59 L 63 61 Respiratory Rate 32 H 33 H 28 H Blood Pressure 134/58 L 137/63 Pulse Oximetry 93 L 94 L 93 L 10/30/18 21:36 10/30/18 22:00 10/30/18 22:06 Temperature Pulse Rate 60 64 64 Respiratory Rate 29 H 28 H 28 H Blood Pressure 132/59 L 119/56 L Pulse Oximetry 92 L 90 L 89 L 10/30/18 22:36 10/30/18 23:00 10/30/18 23:06 Temperature Pulse Rate 59 L 57 L 56 L Respiratory Rate 25 H 22 22 Blood Pressure 128/58 L 137/60 Pulse Oximetry 96 97 98 10/30/18 23:36 10/31/18 00:00 10/31/18 00:06 Temperature 98.7 F Pulse Rate 53 L 65 68 Respiratory Rate 21 30 H 30 H Blood Pressure 113/54 L 111/54 L Pulse Oximetry 97 98 93 L 10/31/18 00:36 10/31/18 01:00 10/31/18 01:06 Temperature Pulse Rate 56 L 61 64 Respiratory Rate 23 26 H 31 H Blood Pressure 136/65 131/58 L Pulse Oximetry 98 96 95 10/31/18 01:36 10/31/18 02:00 10/31/18 02:06 Temperature Pulse Rate 56 L 57 L 55 L Respiratory Rate 21 23 22 Blood Pressure 142/60 H 148/61 H Pulse Oximetry 98 97 98 10/31/18 02:36 10/31/18 03:00 10/31/18 03:19 Temperature Pulse Rate 61 59 L 66 Respiratory Rate 31 H 25 H 25 H Blood Pressure 116/55 L 134/61 Pulse Oximetry 98 94 L 95 10/31/18 03:36 10/31/18 04:00 10/31/18 04:06 Temperature 98.7 F Pulse Rate 62 57 L 57 L Respiratory Rate 30 H 24 23 Blood Pressure 132/58 L 124/56 L Pulse Oximetry 95 96 95 10/31/18 04:36 10/31/18 05:00 10/31/18 05:06 Temperature Pulse Rate 62 60 61 Respiratory Rate 13 22 28 H Blood Pressure 137/64 130/54 L Pulse Oximetry 98 97 98 10/31/18 05:36 10/31/18 06:00 10/31/18 06:06 Temperature Pulse Rate 58 L 59 L 57 L Respiratory Rate 21 22 23 Blood Pressure 134/60 124/59 L Pulse Oximetry 97 98 98 10/31/18 06:36 Temperature Pulse Rate 59 L Respiratory Rate 18 Blood Pressure 134/60 Pulse Oximetry 98 Intake & Output 10/30/18 10/31/18 10/31/18 18:59 06:59 18:59 Intake Total 0 / 0 1000 / 1000 120 / 120 Output Total 300 / 300 Balance 0 / 0 1000 / 1000 -180 / -180 Weight 62 kg 60.7 kg Intake: IV 1000 / 1000 NS Inj 1,000 ML @ 84 mls/hr IV. 1000 / 1000 CONT .[id number] [facility] Rx#:[id number] Oral 0 / 0 120 / 120 Output: Urine 300 / 300 Other: # Incontinent Voids 2 Weight On Admission 62 kg Result Diagrams: 10/31/18 04:37 10/31/18 04:37 Objective Remarks: GEN: Elderly female lying in bed, no acute distress HEENT: PERRL NECK: Trachea midline, Hamilton J in place CARDIO: Regular rate and rhythm PULM: Clear to auscultation bilaterally ABD/GI: Soft, non-tender in all quadrants EXT/MSK: No peripheral edema SKIN: Warm and well-perfused, no rashes or lesions NEURO: A&Ox3, motor strength 5/5 in all extremities, no drift, sensation intact to all extremities, no focal neuro deficits PSYCH: Appropriate affect Assessment and Plan - Assessment and Plan Plan: 78yF presenting with C1/2 spinal fractures s/p mechanical fall at home NEURO: C1 burst fracture C2 avulsion fracture Right occipital condyle fracture Suspected spinal epidural hematoma at C2- ruled out Suspected disruption of anterior longitudinal ligament -Non-operative management planned by neurosurgery, maintain cervical collar at all times -MRI C spine showed no epidural hematoma, no comment in report regarding ALL disruption but the management would also be cervical immobilization -Decrease neuro checks to q4h -ASA restarted yesterday -Pain control -PT consult -Neurosurgery following/ primary service (Dr. Galvan) -Trauma consulted CARDIO: History of CAD s/p stents History of essential hypertension History of dyslipidemia -Aspirin restarted -Continue home antihypertensives and statin PULM: -Incentive spirometry F/E/N: -Cardiac diet, d/c IVF -ICU electrolyte protocol MSK/RHEUM: History of rheumatoid arthritis -Continue DMARDs ENDO: History of hypothyroidism -Continue home dose of synthroid PROPHY: -PPI -SCDs, SQH OVERALL: This patient is stable and can be transitioned to the neurosurgery service. Our team will sign-off. Thank you for this interesting consult and please don't hesitate to reconsult with any new issues. Level 2 follow up To help prompt me to consider important information that might be impacting today's encounter and assessment, information from prior notes written by myself or my colleagues may have been "brought forward" into today's note. My signature on this note, however, is an attestation that I personally performed the exam, history, and/or decision-making noted today, and, unless otherwise indicated, the interactions with patient, family, and staff as well as the review of records all occurred today. I also attest that the listed assessment and stated plan reflect my best clinical judgment today based on the combination of historical information, prior notes, and today's exam/ interactions. Discussed Condition With: Dr. Galvan
[2018-10-31] MEDS: amLODIPine 5 MG Tablet PO SCH (10:14)
[2018-10-31] MEDS: Atenolol 50 MG Tablet PO SCH (10:16)
[2018-10-31] MEDS: Furosemide 20 MG Tablet PO SCH (10:16)
[2018-10-31] MEDS: Famotidine PF Inj 20 MG/2 ML Vial IV.PUSH SCH ×2 (10:17→20:36)
[2018-10-31] MEDS: Senna/Docusate Sodium 8.6/50 MG Tablet PO SCH ×2 (10:17→20:36)
--- NOTE | 2018-10-31 10:17 | P.PNNS ---
Subjective Interval history: Doing well-- Pain improved but did require pain medication Physical Exam Vital signs: Vital Signs 10/30/18 11:14 10/30/18 11:52 10/30/18 11:54 Temperature Pulse Rate 60 Respiratory Rate 24 Blood Pressure 151/68 H Pulse Oximetry 96 99 100 10/30/18 12:00 10/30/18 12:06 10/30/18 12:22 Temperature 98.4 F Pulse Rate 56 L 57 L 68 Respiratory Rate 23 23 16 Blood Pressure 144/57 H 145/64 H 160/71 H Pulse Oximetry 99 100 99 10/30/18 12:36 10/30/18 13:00 10/30/18 13:06 Temperature Pulse Rate 56 L 55 L 57 L Respiratory Rate 21 20 24 Blood Pressure 159/70 H 155/69 H Pulse Oximetry 100 100 98 10/30/18 13:36 10/30/18 14:00 10/30/18 14:06 Temperature Pulse Rate 59 L 53 L 57 L Respiratory Rate 33 H 29 H 28 H Blood Pressure 151/65 H 151/101 H Pulse Oximetry 99 99 95 10/30/18 14:07 10/30/18 14:36 10/30/18 15:00 Temperature Pulse Rate 59 L 53 L 53 L Respiratory Rate 23 18 21 Blood Pressure 159/67 H 154/65 H Pulse Oximetry 98 99 100 10/30/18 15:06 10/30/18 15:36 10/30/18 16:00 Temperature 98.6 F Pulse Rate 56 L 56 L 56 L Respiratory Rate 23 24 20 Blood Pressure 148/64 H 169/67 H Pulse Oximetry 99 99 99 10/30/18 16:06 10/30/18 17:00 10/30/18 17:06 Temperature Pulse Rate 55 L 66 61 Respiratory Rate 23 22 30 H Blood Pressure 144/63 H 131/60 Pulse Oximetry 99 86 L 97 10/30/18 17:36 10/30/18 17:55 10/30/18 18:00 Temperature Pulse Rate 63 66 Respiratory Rate 24 22 Blood Pressure 143/66 H Pulse Oximetry 100 96 99 10/30/18 18:06 10/30/18 18:36 10/30/18 19:00 Temperature 101.9 F H Pulse Rate 64 65 67 Respiratory Rate 23 15 17 Blood Pressure 128/90 139/63 Pulse Oximetry 99 96 99 10/30/18 19:06 10/30/18 19:36 10/30/18 20:00 Temperature 100.8 F H Pulse Rate 70 62 63 Respiratory Rate 36 H 25 H 24 Blood Pressure 137/63 142/63 H Pulse Oximetry 95 94 L 97 10/30/18 20:06 10/30/18 20:26 10/30/18 20:36 Temperature Pulse Rate 61 59 L Respiratory Rate 19 32 H Blood Pressure 134/58 L 134/58 L Pulse Oximetry 95 93 L 93 L 10/30/18 21:00 10/30/18 21:06 10/30/18 21:36 Temperature Pulse Rate 63 61 60 Respiratory Rate 33 H 28 H 29 H Blood Pressure 137/63 132/59 L Pulse Oximetry 94 L 93 L 92 L 10/30/18 22:00 10/30/18 22:06 10/30/18 22:36 Temperature Pulse Rate 64 64 59 L Respiratory Rate 28 H 28 H 25 H Blood Pressure 119/56 L 128/58 L Pulse Oximetry 90 L 89 L 96 10/30/18 23:00 10/30/18 23:06 10/30/18 23:36 Temperature Pulse Rate 57 L 56 L 53 L Respiratory Rate 22 22 21 Blood Pressure 137/60 113/54 L Pulse Oximetry 97 98 97 10/31/18 00:00 10/31/18 00:06 10/31/18 00:36 Temperature 98.7 F Pulse Rate 65 68 56 L Respiratory Rate 30 H 30 H 23 Blood Pressure 111/54 L 136/65 Pulse Oximetry 98 93 L 98 10/31/18 01:00 10/31/18 01:06 10/31/18 01:36 Temperature Pulse Rate 61 64 56 L Respiratory Rate 26 H 31 H 21 Blood Pressure 131/58 L 142/60 H Pulse Oximetry 96 95 98 10/31/18 02:00 10/31/18 02:06 10/31/18 02:36 Temperature Pulse Rate 57 L 55 L 61 Respiratory Rate 23 22 31 H Blood Pressure 148/61 H 116/55 L Pulse Oximetry 97 98 98 10/31/18 03:00 10/31/18 03:19 10/31/18 03:36 Temperature Pulse Rate 59 L 66 62 Respiratory Rate 25 H 25 H 30 H Blood Pressure 134/61 132/58 L Pulse Oximetry 94 L 95 95 10/31/18 04:00 10/31/18 04:06 10/31/18 04:36 Temperature 98.7 F Pulse Rate 57 L 57 L 62 Respiratory Rate 24 23 13 Blood Pressure 124/56 L 137/64 Pulse Oximetry 96 95 98 10/31/18 05:00 10/31/18 05:06 10/31/18 05:36 Temperature Pulse Rate 60 61 58 L Respiratory Rate 22 28 H 21 Blood Pressure 130/54 L 134/60 Pulse Oximetry 97 98 97 10/31/18 06:00 10/31/18 06:06 10/31/18 06:36 Temperature Pulse Rate 59 L 57 L 59 L Respiratory Rate 22 23 18 Blood Pressure 124/59 L 134/60 Pulse Oximetry 98 98 98 10/31/18 09:59 Temperature Pulse Rate Respiratory Rate Blood Pressure Pulse Oximetry 94 L Intake & Output 10/30/18 10/31/18 10/31/18 18:59 06:59 18:59 Intake Total 0 / 0 1000 / 1000 120 / 120 Output Total 300 / 300 Balance 0 / 0 1000 / 1000 -180 / -180 Weight 62 kg 60.7 kg Intake: IV 1000 / 1000 NS Inj 1,000 ML @ 84 mls/hr IV. 1000 / 1000 CONT .[id number] Rx#:[id number] Oral 0 / 0 120 / 120 Output: Urine 300 / 300 Other: # Incontinent Voids 2 Weight On Admission 62 kg Narrative: A&O x 3 CN II-XII intact Motor 5/5 UE/LE Collar in place Intact sensation throughout Assessment and Plan - Plan 78yoF with right c1 anterior and posterior arch fractures ([place]) with right occipital condyle fracture, question minor dens fracture. MRI C-spine: ligamentous injury at C1 posteriorly, rheumatoid pannus behind C2 ( not hematoma). Plan: 10/30/18 Will attempt mobilization with a [place] J collar all the time. If neck pain is persistent or not improved next few days, could consider a surgical stabilization procedure. At this point, this fracture morphology should heal, will attempt symptomatic pain relief. Her HOB can be up as tolerated and she can mobilize out of bed with assistance and PT. If neck pain is worsening, would reimage with lateral C-spine xrays and or CT. May eat. Discussed prognosis with patient and her daughters-- prolonged neck immobilzation but we will take this day by day symptomatically. 10/31/18 Pain improved overnight. Has been sitting up but not yet out of bed -- may get out of bed with collar as limited by pain -- PT . Mobilize with PT as tolerated by patient's pain, will need a walker. Collar all the time. Will continue to monitor pain level. ADAT. HOB up as tolerated. OOB as tolerated with assist.
[2018-10-31] MEDS: Famotidine 20 MG Tablet PO SCH ×2 (10:21→20:35)
[2018-10-31] MEDS: Acetaminophen 325 MG Tablet PO PRN ×2 (16:15→22:27)
[2018-11-01] MEDS: Acetaminophen 325 MG Tablet PO PRN ×3 (04:51→20:42)
[2018-11-01] MEDS: Chlorhexidine Gluconate 2% 1 Pack (2 Cloths) TOPICAL SCH (04:52)
[2018-11-01] MEDS: Heparin - SQ 10,000 UNITS/ML Vial SQ SCH ×3 (06:27→21:34)
[2018-11-01] MEDS: Levothyroxine 112 MCG Tablet PO SCH (06:28)
[2018-11-01 06:37] LABS: Hematocrit 37.7 % (35.0-46.0); Hemoglobin 12.4 gm/dL (11.6-15.3); Mean Corpuscular HGB Conc 32.8 % (32.0-36.0); Mean Corpuscular Hemoglobin 29.9 pg (27.0-34.0); Mean Corpuscular Volume 91.2 fL (80.0-100.0); Mean Platelet Volume 8.1 fL (7.0-11.0); Platelet Count 243 th/mm3 (150-450); Red Blood Count 4.13 mil/mm3 (4.00-5.30); Red Cell Distribution Width 15.8 % (11.6-17.2)
[2018-11-01 07:19] LABS: Anion Gap 11 meq/L (5-15); Blood Urea Nitrogen 8 mg/dL (7-18); Calcium 8.1 mg/dL (8.5-10.1); Carbon Dioxide 23.4 meq/L (21.0-32.0); Chloride 102 meq/L (98-107); Glomerular Filtration Rate Greater Than 89 mL/min (>89); Glucose,Random 82 mg/dL (74-106); Potassium 3.5 meq/L (3.5-5.1); Sodium 136 meq/L (136-145)
[2018-11-01] MEDS: Furosemide 20 MG Tablet PO SCH (09:51)
[2018-11-01] MEDS: Senna/Docusate Sodium 8.6/50 MG Tablet PO SCH ×2 (09:51→20:42)
[2018-11-01] MEDS: amLODIPine 5 MG Tablet PO SCH (09:51)
[2018-11-01] MEDS: Famotidine 20 MG Tablet PO SCH ×2 (09:52→20:41)
[2018-11-01] MEDS: Famotidine PF Inj 20 MG/2 ML Vial IV.PUSH SCH ×2 (09:52→20:41)
[2018-11-01] MEDS: Atenolol 50 MG Tablet PO SCH (09:55)
--- NOTE | 2018-11-01 11:48 | P.PNIM ---
Subjective Interval history: The patient was resting comfortably in a chair. Her family was at the bedside. She did complain that the cervical collar was causing some discomfort. She denies any numbness or tingling or any weakness. She did complain of a chronic cough over the past few weeks that has been dry. She denies any pain upon urination. She did complain of a fever yesterday. She said that the fall was purely mechanical. She has not had a fall recently. She would like to go home instead of going to rehab. Physical Exam Vital signs: Vital Signs 10/31/18 12:00 10/31/18 12:06 10/31/18 12:36 Temperature 99.3 F Pulse Rate 68 69 66 Respiratory Rate 25 H 24 24 Blood Pressure 149/65 H 160/67 H Pulse Oximetry 95 95 96 10/31/18 13:00 10/31/18 13:06 10/31/18 13:19 Temperature Pulse Rate 71 75 70 Respiratory Rate 27 H 27 H 24 Blood Pressure 150/108 H 155/67 H Pulse Oximetry 97 93 L 95 10/31/18 13:36 10/31/18 14:00 10/31/18 14:06 Temperature Pulse Rate 71 71 74 Respiratory Rate 27 H 26 H 29 H Blood Pressure 151/67 H 146/66 H Pulse Oximetry 94 L 94 L 92 L 10/31/18 14:36 10/31/18 15:00 10/31/18 15:36 Temperature Pulse Rate 72 74 76 Respiratory Rate 29 H 31 H 31 H Blood Pressure 158/67 H 135/56 L Pulse Oximetry 94 L 92 L 90 L 10/31/18 16:00 10/31/18 16:06 10/31/18 16:36 Temperature 102.0 F H Pulse Rate 68 68 67 Respiratory Rate 26 H 26 H 26 H Blood Pressure 153/67 H 130/63 Pulse Oximetry 94 L 92 L 92 L 10/31/18 17:00 10/31/18 17:06 10/31/18 17:36 Temperature Pulse Rate 69 67 65 Respiratory Rate 26 H 28 H 24 Blood Pressure 120/65 113/55 L Pulse Oximetry 92 L 93 L 92 L 10/31/18 17:45 10/31/18 18:00 10/31/18 18:06 Temperature 100.0 F H Pulse Rate 60 60 Respiratory Rate 21 21 Blood Pressure 134/60 Pulse Oximetry 92 L 94 L 10/31/18 18:36 10/31/18 19:00 10/31/18 19:06 Temperature Pulse Rate 54 L 56 L 55 L Respiratory Rate 21 20 19 Blood Pressure 112/52 L 116/53 L Pulse Oximetry 94 L 96 95 10/31/18 19:20 10/31/18 19:36 10/31/18 20:00 Temperature 98.1 F 98.6 F Pulse Rate 55 L 53 L Respiratory Rate 26 H 20 Blood Pressure 109/55 L Pulse Oximetry 96 95 10/31/18 20:06 10/31/18 20:36 10/31/18 20:56 Temperature Pulse Rate 54 L 56 L Respiratory Rate 18 20 Blood Pressure 127/59 L 117/55 L Pulse Oximetry 95 96 95 10/31/18 21:00 10/31/18 21:06 10/31/18 21:36 Temperature Pulse Rate 52 L 54 L 52 L Respiratory Rate 21 21 23 Blood Pressure 117/55 L 106/51 L Pulse Oximetry 95 96 96 10/31/18 22:00 10/31/18 22:06 10/31/18 22:36 Temperature Pulse Rate 59 L 53 L 57 L Respiratory Rate 22 21 31 H Blood Pressure 138/59 L 130/60 Pulse Oximetry 98 98 95 10/31/18 23:00 10/31/18 23:06 10/31/18 23:36 Temperature Pulse Rate 56 L 55 L 55 L Respiratory Rate 23 23 23 Blood Pressure 130/60 121/58 L Pulse Oximetry 97 95 97 11/01/18 00:00 11/01/18 00:06 11/01/18 00:36 Temperature 98.7 F Pulse Rate 56 L 56 L 55 L Respiratory Rate 22 20 22 Blood Pressure 113/55 L 112/56 L Pulse Oximetry 95 96 96 11/01/18 01:00 11/01/18 01:06 11/01/18 01:36 Temperature Pulse Rate 53 L 52 L 51 L Respiratory Rate 25 H 23 23 Blood Pressure 110/56 L 120/56 L Pulse Oximetry 96 95 96 11/01/18 02:00 11/01/18 02:06 11/01/18 02:36 Temperature Pulse Rate 54 L 53 L 58 L Respiratory Rate 21 22 20 Blood Pressure 128/60 136/63 Pulse Oximetry 98 96 96 11/01/18 03:00 11/01/18 03:06 11/01/18 03:36 Temperature Pulse Rate 55 L 55 L 55 L Respiratory Rate 21 22 24 Blood Pressure 120/56 L 116/59 L Pulse Oximetry 97 95 94 L 11/01/18 04:00 11/01/18 04:06 11/01/18 04:36 Temperature Pulse Rate 56 L 61 59 L Respiratory Rate 22 15 23 Blood Pressure 148/64 H 131/61 Pulse Oximetry 95 93 L 99 11/01/18 05:00 11/01/18 05:06 11/01/18 05:36 Temperature Pulse Rate 64 64 60 Respiratory Rate 23 23 24 Blood Pressure 135/65 130/61 Pulse Oximetry 98 98 96 11/01/18 06:00 11/01/18 06:06 11/01/18 06:36 Temperature Pulse Rate 58 L 59 L 55 L Respiratory Rate 22 23 21 Blood Pressure 127/60 131/60 Pulse Oximetry 95 95 96 11/01/18 07:00 11/01/18 07:06 11/01/18 07:36 Temperature Pulse Rate 56 L 54 L 55 L Respiratory Rate 20 21 21 Blood Pressure 127/60 129/62 Pulse Oximetry 97 96 96 11/01/18 08:00 11/01/18 08:06 11/01/18 08:36 Temperature 97.8 F Pulse Rate 53 L 54 L 59 L Respiratory Rate 20 20 19 Blood Pressure 138/63 137/60 Pulse Oximetry 96 96 91 L 11/01/18 09:00 11/01/18 09:06 11/01/18 09:36 Temperature Pulse Rate 56 L 57 L 63 Respiratory Rate 34 H 26 H 26 H Blood Pressure 127/58 L 114/58 L Pulse Oximetry 97 100 98 11/01/18 09:40 11/01/18 10:00 11/01/18 10:06 Temperature Pulse Rate 61 60 Respiratory Rate 26 H 25 H Blood Pressure 119/57 L Pulse Oximetry 97 97 100 11/01/18 10:36 11/01/18 11:00 11/01/18 11:06 Temperature Pulse Rate 56 L 58 L 58 L Respiratory Rate 27 H 22 26 H Blood Pressure 111/53 L 107/56 L Pulse Oximetry 99 96 97 Intake & Output 10/31/18 11/01/18 11/01/18 18:59 06:59 18:59 Intake Total 120 / 120 480 / 480 Output Total 300 / 300 1200 / 1200 Balance -180 / -180 -720 / -720 Weight 61.5 kg Intake: Oral 120 / 120 480 / 480 Output: Urine 300 / 300 1200 / 1200 Other: # Incontinent Voids 2 # Bowel Movements 0 Narrative: GEN: No distress HEENT: PERRL NECK: Trachea midline, [place] J in place CARDIO: Regular rate and rhythm PULM: Clear to auscultation bilaterally ABD/GI: Soft, non-tender in all quadrants EXT/MSK: No peripheral edema SKIN: Warm and well-perfused, no rashes or lesions NEURO: A&Ox3, motor strength 5/5 in all extremities, no drift, sensation intact to all extremities, no focal neuro deficits PSYCH: Appropriate affect Results Labs CBC & Chem 7: 11/01/18 05:12 11/01/18 05:12 Assessment and Plan Plan C1 burst fracture/C2 avulsion fracture/Right occipital condyle fracture S/p mechanical fall at [place]. Non-operative management planned by neurosurgery and surgery. MRI C spine showed no epidural hematoma. -Decrease neuro checks to q4h. -ASA restarted. -Pain control with a bowel regimen. -PT/OT consults. -Neurosurgery following. -repeat imaging pending. -continue cervical collar. History of CAD s/p stents/History of essential hypertension/History of dyslipidemia Stable. -Aspirin restarted. -Continue home antihypertensives and statin. Fever/Cough Nonproductive. Imaging with ? infiltrates. UA unremarkable. -repeat CXR. -start IV doxycycline. History of rheumatoid arthritis Stable. -Continue DMARDs. History of hypothyroidism Stable. -Continue home dose of Synthroid. PPx: Heparin Progress Note: Quality VTE Deep Vein Thrombosis/Pulmonary Embolism Present on Admission: No
--- NOTE | 2018-11-01 11:56 | P.PNNS ---
Subjective Interval history: Pain improving Physical Exam Vital signs: Vital Signs 10/31/18 12:00 10/31/18 12:06 10/31/18 12:36 Temperature 99.3 F Pulse Rate 68 69 66 Respiratory Rate 25 H 24 24 Blood Pressure 149/65 H 160/67 H Pulse Oximetry 95 95 96 10/31/18 13:00 10/31/18 13:06 10/31/18 13:19 Temperature Pulse Rate 71 75 70 Respiratory Rate 27 H 27 H 24 Blood Pressure 150/108 H 155/67 H Pulse Oximetry 97 93 L 95 10/31/18 13:36 10/31/18 14:00 10/31/18 14:06 Temperature Pulse Rate 71 71 74 Respiratory Rate 27 H 26 H 29 H Blood Pressure 151/67 H 146/66 H Pulse Oximetry 94 L 94 L 92 L 10/31/18 14:36 10/31/18 15:00 10/31/18 15:36 Temperature Pulse Rate 72 74 76 Respiratory Rate 29 H 31 H 31 H Blood Pressure 158/67 H 135/56 L Pulse Oximetry 94 L 92 L 90 L 10/31/18 16:00 10/31/18 16:06 10/31/18 16:36 Temperature 102.0 F H Pulse Rate 68 68 67 Respiratory Rate 26 H 26 H 26 H Blood Pressure 153/67 H 130/63 Pulse Oximetry 94 L 92 L 92 L 10/31/18 17:00 10/31/18 17:06 10/31/18 17:36 Temperature Pulse Rate 69 67 65 Respiratory Rate 26 H 28 H 24 Blood Pressure 120/65 113/55 L Pulse Oximetry 92 L 93 L 92 L 10/31/18 17:45 10/31/18 18:00 10/31/18 18:06 Temperature 100.0 F H Pulse Rate 60 60 Respiratory Rate 21 21 Blood Pressure 134/60 Pulse Oximetry 92 L 94 L 10/31/18 18:36 10/31/18 19:00 10/31/18 19:06 Temperature Pulse Rate 54 L 56 L 55 L Respiratory Rate 21 20 19 Blood Pressure 112/52 L 116/53 L Pulse Oximetry 94 L 96 95 10/31/18 19:20 10/31/18 19:36 10/31/18 20:00 Temperature 98.1 F 98.6 F Pulse Rate 55 L 53 L Respiratory Rate 26 H 20 Blood Pressure 109/55 L Pulse Oximetry 96 95 10/31/18 20:06 10/31/18 20:36 10/31/18 20:56 Temperature Pulse Rate 54 L 56 L Respiratory Rate 18 20 Blood Pressure 127/59 L 117/55 L Pulse Oximetry 95 96 95 10/31/18 21:00 10/31/18 21:06 10/31/18 21:36 Temperature Pulse Rate 52 L 54 L 52 L Respiratory Rate 21 21 23 Blood Pressure 117/55 L 106/51 L Pulse Oximetry 95 96 96 10/31/18 22:00 10/31/18 22:06 10/31/18 22:36 Temperature Pulse Rate 59 L 53 L 57 L Respiratory Rate 22 21 31 H Blood Pressure 138/59 L 130/60 Pulse Oximetry 98 98 95 10/31/18 23:00 10/31/18 23:06 10/31/18 23:36 Temperature Pulse Rate 56 L 55 L 55 L Respiratory Rate 23 23 23 Blood Pressure 130/60 121/58 L Pulse Oximetry 97 95 97 11/01/18 00:00 11/01/18 00:06 11/01/18 00:36 Temperature 98.7 F Pulse Rate 56 L 56 L 55 L Respiratory Rate 22 20 22 Blood Pressure 113/55 L 112/56 L Pulse Oximetry 95 96 96 11/01/18 01:00 11/01/18 01:06 11/01/18 01:36 Temperature Pulse Rate 53 L 52 L 51 L Respiratory Rate 25 H 23 23 Blood Pressure 110/56 L 120/56 L Pulse Oximetry 96 95 96 11/01/18 02:00 11/01/18 02:06 11/01/18 02:36 Temperature Pulse Rate 54 L 53 L 58 L Respiratory Rate 21 22 20 Blood Pressure 128/60 136/63 Pulse Oximetry 98 96 96 11/01/18 03:00 11/01/18 03:06 11/01/18 03:36 Temperature Pulse Rate 55 L 55 L 55 L Respiratory Rate 21 22 24 Blood Pressure 120/56 L 116/59 L Pulse Oximetry 97 95 94 L 11/01/18 04:00 11/01/18 04:06 11/01/18 04:36 Temperature Pulse Rate 56 L 61 59 L Respiratory Rate 22 15 23 Blood Pressure 148/64 H 131/61 Pulse Oximetry 95 93 L 99 11/01/18 05:00 11/01/18 05:06 11/01/18 05:36 Temperature Pulse Rate 64 64 60 Respiratory Rate 23 23 24 Blood Pressure 135/65 130/61 Pulse Oximetry 98 98 96 11/01/18 06:00 11/01/18 06:06 11/01/18 06:36 Temperature Pulse Rate 58 L 59 L 55 L Respiratory Rate 22 23 21 Blood Pressure 127/60 131/60 Pulse Oximetry 95 95 96 11/01/18 07:00 11/01/18 07:06 11/01/18 07:36 Temperature Pulse Rate 56 L 54 L 55 L Respiratory Rate 20 21 21 Blood Pressure 127/60 129/62 Pulse Oximetry 97 96 96 11/01/18 08:00 11/01/18 08:06 11/01/18 08:36 Temperature 97.8 F Pulse Rate 53 L 54 L 59 L Respiratory Rate 20 20 19 Blood Pressure 138/63 137/60 Pulse Oximetry 96 96 91 L 11/01/18 09:00 11/01/18 09:06 11/01/18 09:36 Temperature Pulse Rate 56 L 57 L 63 Respiratory Rate 34 H 26 H 26 H Blood Pressure 127/58 L 114/58 L Pulse Oximetry 97 100 98 11/01/18 09:40 11/01/18 10:00 11/01/18 10:06 Temperature Pulse Rate 61 60 Respiratory Rate 26 H 25 H Blood Pressure 119/57 L Pulse Oximetry 97 97 100 11/01/18 10:36 11/01/18 11:00 11/01/18 11:06 Temperature Pulse Rate 56 L 58 L 58 L Respiratory Rate 27 H 22 26 H Blood Pressure 111/53 L 107/56 L Pulse Oximetry 99 96 97 Intake & Output 10/31/18 11/01/18 11/01/18 18:59 06:59 18:59 Intake Total 120 / 120 480 / 480 Output Total 300 / 300 1200 / 1200 Balance -180 / -180 -720 / -720 Weight 61.5 kg Intake: Oral 120 / 120 480 / 480 Output: Urine 300 / 300 1200 / 1200 Other: # Incontinent Voids 2 # Bowel Movements 0 Narrative: A&O x 3 CN II-XII intact Motor 5/5 UE/LE Collar in place Intact sensation throughout Assessment and Plan - Plan 78yoF with right c1 anterior and posterior arch fractures ([place]) with right occipital condyle fracture, question minor dens fracture. MRI C-spine: ligamentous injury at C1 posteriorly, rheumatoid pannus behind C2 ( not hematoma). Plan: 10/30/18 Will attempt mobilization with a [place] J collar all the time. If neck pain is persistent or not improved next few days, could consider a surgical stabilization procedure. At this point, this fracture morphology should heal, will attempt symptomatic pain relief. Her HOB can be up as tolerated and she can mobilize out of bed with assistance and PT. If neck pain is worsening, would reimage with lateral C-spine xrays and or CT. May eat. Discussed prognosis with patient and her daughters-- prolonged neck immobilzation but we will take this day by day symptomatically. 10/31/18 Pain improved overnight. Has been sitting up but not yet out of bed -- may get out of bed with collar as limited by pain -- PT . Mobilize with PT as tolerated by patient's pain, will need a walker. Collar all the time. Will continue to monitor pain level. ADAT. HOB up as tolerated. OOB as tolerated with assist. 11/01/18 Fever yesterday improved after voiding, UA negative day prior. If febrile again , repeat UA. Collar all the time-- xrays look stable -- ok to transfer to floor PT continue OOB as tolerated with assist. Switched to Tylenol prn for pain as she was getting confused with narcotics. Will continue to follow.
[2018-11-01 15:03] LABS: Bilirubin,Urine Negative (Negative); Clarity,Urine Clear (Clear); Color,Urine Yellow (Yellw/Straw); Glucose,Urine (UA) Negative (Negative); Leukocyte Esterase,Urine Negative (Negative); Nitrite,Urine Negative (Negative); Specific Gravity,Urine 1.005 (1.002-1.035); Squamous Epithelial Cell,Urine 3 /hpf (0-5)
--- NOTE | 2018-11-01 15:18 | XR ---
EXAM DATE: 11/01/2018 3:04 PM EST AGE/SEX: 78 years / Female INDICATIONS: Patient has fractured cervical spine. CLINICAL DATA: This is the patient's subsequent encounter. Patient reports that signs and symptoms h ave been present for 3 days and indicates a pain score of 9/10. MEDICAL/SURGICAL HISTORY: . Cardiovascular disease. Arthritis. Cholecystectomy. Hysterectomy. C oronary artery stent. . COMPARISON: [facility], XR SPINE CERVICAL (MIN 4 VIEWS), 09/16/2017. . FINDINGS: Due to physical limitations, very limited view of the cervical spine. There appears to be extensive f acet hypertrophy throughout the cervical spine. Grossly, vertebral body heights are maintained with n o obvious listhesis. CONCLUSION: 1. Very limited views of the cervical spine. No obvious fracture. 2. Extensive facet hypertrophy and degeneration throughout the cervical spine Electronically signed by: Evaristo Benjamin MD Board Certified Radiologist 11/01/2018 3:16 PM EST
--- NOTE | 2018-11-01 15:19 | XR ---
EXAM DATE: 11/01/2018 3:05 PM EST AGE/SEX: 78 years / Female INDICATIONS: Cough. CLINICAL DATA: This is the patient's initial encounter. Patient reports that signs and symptoms have been present for 3 days and indicates a pain score of 7/10. MEDICAL/SURGICAL HISTORY: . Cardiovascular disease. Arthritis. Cholecystectomy. Hysterectomy. C oronary artery stent. . COMPARISON: . FINDINGS: A single AP view of the chest demonstrates stable elevation of the right hemidiaphragm. No confluent infiltrate. There is some mild interstitial prominence, very similar to the prior exam. Heart size is borderline prominent and there appears to be a coronary stent projecting over the cardiac silhouette . Mild S-shaped scoliosis of the thoracolumbar spine with associated degenerative changes. Osseous st ructures are otherwise intact. CONCLUSION: 1. Stable elevation of the right hemidiaphragm with no acute infiltrate. 2. Borderline heart size with mild interstitial prominence suggesting some degree of vascular conges tion or volume overload. 3. No significant change from prior. Electronically signed by: Evaristo Benjamin MD Board Certified Radiologist 11/01/2018 3:18 PM EST
[2018-11-02] MEDS: Chlorhexidine Gluconate 2% 1 Pack (2 Cloths) TOPICAL SCH (03:01)
[2018-11-02] MEDS: Heparin - SQ 10,000 UNITS/ML Vial SQ SCH ×3 (05:47→21:20)
[2018-11-02] MEDS: Levothyroxine 112 MCG Tablet PO SCH (05:48)
[2018-11-02] MEDS: Acetaminophen 325 MG Tablet PO PRN ×2 (05:48→13:35)
[2018-11-02 06:44] LABS: Calcium 8.1 mg/dL (8.5-10.1); Carbon Dioxide 27.3 meq/L (21.0-32.0); Magnesium 2.1 mg/dL (1.5-2.5); Potassium 3.3 meq/L (3.5-5.1)
[2018-11-02] MEDS ORDERED: Polyethylene Glycol 3350 17 GM Packet PO ONE (09:07)
--- NOTE | 2018-11-02 09:11 | P.PNIM ---
Subjective Interval history: The patient was resting comfortably in bed. She complained of a mild headache where she hit her head. She still has a cough and endorses some mucus production. She has not had a bowel movement in a few days. She has been passing gas. She has not been eating much. Family at the bedside and questions were answered. Physical Exam Vital signs: Vital Signs 11/01/18 09:36 11/01/18 09:40 11/01/18 10:00 Temperature Pulse Rate 63 61 Respiratory Rate 26 H 26 H Blood Pressure 114/58 L Pulse Oximetry 98 97 97 11/01/18 10:06 11/01/18 10:36 11/01/18 11:00 Temperature Pulse Rate 60 56 L 58 L Respiratory Rate 25 H 27 H 22 Blood Pressure 119/57 L 111/53 L Pulse Oximetry 100 99 96 11/01/18 11:06 11/01/18 11:36 11/01/18 12:00 Temperature Pulse Rate 58 L 62 62 Respiratory Rate 26 H 38 H Blood Pressure 107/56 L 114/57 L Pulse Oximetry 97 97 11/01/18 12:02 11/01/18 12:06 11/01/18 12:36 Temperature 99.6 F Pulse Rate 66 60 58 L Respiratory Rate 23 25 H Blood Pressure 117/58 L 107/53 L Pulse Oximetry 97 97 11/01/18 13:00 11/01/18 13:06 11/01/18 13:31 Temperature Pulse Rate 63 63 64 Respiratory Rate 29 H 22 33 H Blood Pressure 101/52 L Pulse Oximetry 97 97 96 11/01/18 14:00 11/01/18 14:28 11/01/18 15:14 Temperature Pulse Rate 69 Respiratory Rate 18 Blood Pressure 137/63 Pulse Oximetry 11/01/18 15:15 11/01/18 16:00 11/01/18 17:00 Temperature 102.4 F H Pulse Rate 76 71 66 Respiratory Rate 32 H 28 H 29 H Blood Pressure Pulse Oximetry 82 L 95 96 11/01/18 18:00 11/01/18 19:00 11/01/18 19:28 Temperature Pulse Rate 61 63 Respiratory Rate 31 H 31 H Blood Pressure Pulse Oximetry 96 96 97 11/01/18 20:00 11/01/18 20:38 11/01/18 21:00 Temperature 98.7 F Pulse Rate 61 66 62 Respiratory Rate 21 18 20 Blood Pressure 139/63 139/64 Pulse Oximetry 97 96 98 11/01/18 21:12 11/01/18 21:23 11/01/18 22:00 Temperature Pulse Rate 64 61 Respiratory Rate 16 20 20 Blood Pressure 147/63 H Pulse Oximetry 97 99 11/01/18 22:23 11/01/18 23:00 11/01/18 23:23 Temperature Pulse Rate 59 L 61 64 Respiratory Rate 18 21 21 Blood Pressure 150/69 H 146/67 H Pulse Oximetry 98 99 99 11/02/18 00:00 11/02/18 00:23 11/02/18 01:00 Temperature 98.6 F Pulse Rate 61 60 62 Respiratory Rate 19 21 21 Blood Pressure 121/60 Pulse Oximetry 98 98 98 11/02/18 01:23 11/02/18 02:00 11/02/18 02:23 Temperature Pulse Rate 61 61 62 Respiratory Rate 22 19 19 Blood Pressure 124/58 L 154/69 H Pulse Oximetry 97 98 99 11/02/18 03:00 11/02/18 03:23 11/02/18 04:00 Temperature 98.7 F Pulse Rate 64 66 70 Respiratory Rate 20 21 19 Blood Pressure 148/67 H Pulse Oximetry 98 99 98 11/02/18 04:23 11/02/18 05:00 11/02/18 05:23 Temperature Pulse Rate 64 70 70 Respiratory Rate 19 22 22 Blood Pressure 154/70 H 174/71 H Pulse Oximetry 100 97 98 11/02/18 06:00 11/02/18 06:18 11/02/18 06:23 Temperature Pulse Rate 68 64 Respiratory Rate 22 22 25 H Blood Pressure 148/67 H Pulse Oximetry 99 98 11/02/18 06:59 11/02/18 07:00 11/02/18 07:19 Temperature Pulse Rate 66 Respiratory Rate 15 22 Blood Pressure 149/68 H Pulse Oximetry 98 98 11/02/18 08:00 Temperature 97.9 F Pulse Rate 63 Respiratory Rate 22 Blood Pressure 124/59 L Pulse Oximetry 98 Intake & Output 11/01/18 11/02/18 11/02/18 18:59 06:59 18:59 Intake Total 580 / 580 400 / 400 Output Total 850 / 850 400 / 400 Balance 580 / 580 -450 / -450 -400 / -400 Weight 61.3 kg Intake: IV 100 / 100 100 / 100 Doxy 100 Inj 100 MG In NS Inj 100 / 100 100 / 100 100 ML @ 100 mls/hr IV.SIG Q12H ERENDIRA Rx#:[id number] Oral 480 / 480 300 / 300 Output: Urine 850 / 850 400 / 400 Other: # Voids 3 2 # Bowel Movements 0 Narrative: GEN: No distress HEENT: PERRL NECK: Trachea midline, Musella J in place CARDIO: Regular rate and rhythm PULM: Clear to auscultation bilaterally ABD/GI: Soft, non-tender in all quadrants, +bs EXT/MSK: No peripheral edema SKIN: Warm and well-perfused, no rashes or lesions NEURO: A&Ox3, motor strength 5/5 in all extremities, no drift, sensation intact to all extremities, no focal neuro deficits PSYCH: Appropriate affect Results Labs CBC & Chem 7: 11/01/18 05:12 11/02/18 05:07 Imaging Imaging: Impressions Cervical Spine X-Ray 11/01/18 00:00 CONCLUSION: 1. Very limited views of the cervical spine. No obvious fracture. 2. Extensive facet hypertrophy and degeneration throughout the cervical spine Chest X-Ray 11/01/18 11:48 CONCLUSION: 1. Stable elevation of the right hemidiaphragm with no acute infiltrate. 2. Borderline heart size with mild interstitial prominence suggesting some degree of vascular congestion or volume overload. 3. No significant change from prior. Assessment and Plan Plan C1 burst fracture/C2 avulsion fracture/Right occipital condyle fracture S/p mechanical fall at [facility]. Non-operative management planned by neurosurgery and surgery. MRI C spine showed no epidural hematoma. -Decrease neuro checks to q4h. -ASA restarted. -Pain control with a bowel regimen. -PT/OT consults. -Neurosurgery following. Stable for transfer to floor. -continue cervical collar. History of CAD s/p stents/History of essential hypertension/History of dyslipidemia Stable. No chest pain at this time. -Aspirin restarted. -Continue home antihypertensives and statin. Fever/Cough Nonproductive. Imaging with ? infiltrates. UA unremarkable. Repeat CXR without evidence of infection. -continue IV doxycycline. -sputum culture and blood cultures pending. History of rheumatoid arthritis Not flared up. -Continue DMARDs. History of hypothyroidism Stable. -Continue home dose of Synthroid. Constipation Has not been eating much. -ADAT. -continue bowel regimen. Add Miralax x 1. PPx: Heparin Discharge Planning: Transfer to floor Progress Note: Quality VTE Deep Vein Thrombosis/Pulmonary Embolism Present on Admission: No
--- NOTE | 2018-11-02 09:57 | P.PNNS ---
Subjective Interval history: Febrile again to 102, Neck pain improved Physical Exam Vital signs: Vital Signs 11/01/18 10:00 11/01/18 10:06 11/01/18 10:36 Temperature Pulse Rate 61 60 56 L Respiratory Rate 26 H 25 H 27 H Blood Pressure 119/57 L 111/53 L Pulse Oximetry 97 100 99 11/01/18 11:00 11/01/18 11:06 11/01/18 11:36 Temperature Pulse Rate 58 L 58 L 62 Respiratory Rate 22 26 H 38 H Blood Pressure 107/56 L 114/57 L Pulse Oximetry 96 97 97 11/01/18 12:00 11/01/18 12:02 11/01/18 12:06 Temperature 99.6 F Pulse Rate 62 66 60 Respiratory Rate 23 Blood Pressure 117/58 L Pulse Oximetry 97 11/01/18 12:36 11/01/18 13:00 11/01/18 13:06 Temperature Pulse Rate 58 L 63 63 Respiratory Rate 25 H 29 H 22 Blood Pressure 107/53 L 101/52 L Pulse Oximetry 97 97 97 11/01/18 13:31 11/01/18 14:00 11/01/18 14:28 Temperature Pulse Rate 64 69 Respiratory Rate 33 H 18 Blood Pressure Pulse Oximetry 96 11/01/18 15:14 11/01/18 15:15 11/01/18 16:00 Temperature 102.4 F H Pulse Rate 76 71 Respiratory Rate 32 H 28 H Blood Pressure 137/63 Pulse Oximetry 82 L 95 11/01/18 17:00 11/01/18 18:00 11/01/18 19:00 Temperature Pulse Rate 66 61 63 Respiratory Rate 29 H 31 H 31 H Blood Pressure Pulse Oximetry 96 96 96 11/01/18 19:28 11/01/18 20:00 11/01/18 20:38 Temperature 98.7 F Pulse Rate 61 66 Respiratory Rate 21 18 Blood Pressure 139/63 Pulse Oximetry 97 97 96 11/01/18 21:00 11/01/18 21:12 11/01/18 21:23 Temperature Pulse Rate 62 64 Respiratory Rate 20 16 20 Blood Pressure 139/64 147/63 H Pulse Oximetry 98 97 11/01/18 22:00 11/01/18 22:23 11/01/18 23:00 Temperature Pulse Rate 61 59 L 61 Respiratory Rate 20 18 21 Blood Pressure 150/69 H Pulse Oximetry 99 98 99 11/01/18 23:23 11/02/18 00:00 11/02/18 00:23 Temperature 98.6 F Pulse Rate 64 61 60 Respiratory Rate 21 19 21 Blood Pressure 146/67 H 121/60 Pulse Oximetry 99 98 98 11/02/18 01:00 11/02/18 01:23 11/02/18 02:00 Temperature Pulse Rate 62 61 61 Respiratory Rate 21 22 19 Blood Pressure 124/58 L Pulse Oximetry 98 97 98 11/02/18 02:23 11/02/18 03:00 11/02/18 03:23 Temperature Pulse Rate 62 64 66 Respiratory Rate 19 20 21 Blood Pressure 154/69 H 148/67 H Pulse Oximetry 99 98 99 11/02/18 04:00 11/02/18 04:23 11/02/18 05:00 Temperature 98.7 F Pulse Rate 70 64 70 Respiratory Rate 19 19 22 Blood Pressure 154/70 H Pulse Oximetry 98 100 97 11/02/18 05:23 11/02/18 06:00 11/02/18 06:18 Temperature Pulse Rate 70 68 Respiratory Rate 22 22 22 Blood Pressure 174/71 H Pulse Oximetry 98 99 11/02/18 06:23 11/02/18 06:59 11/02/18 07:00 Temperature Pulse Rate 64 66 Respiratory Rate 25 H 15 22 Blood Pressure 148/67 H 149/68 H Pulse Oximetry 98 98 11/02/18 07:19 11/02/18 08:00 Temperature 97.9 F Pulse Rate 63 Respiratory Rate 22 Blood Pressure 124/59 L Pulse Oximetry 98 98 Intake & Output 11/01/18 11/02/18 11/02/18 18:59 06:59 18:59 Intake Total 580 / 580 400 / 400 Output Total 850 / 850 400 / 400 Balance 580 / 580 -450 / -450 -400 / -400 Weight 61.3 kg Intake: IV 100 / 100 100 / 100 Doxy 100 Inj 100 MG In NS Inj 100 / 100 100 / 100 100 ML @ 100 mls/hr IV.SIG Q12H ERENDIRA Rx#:[id number] Oral 480 / 480 300 / 300 Output: Urine 850 / 850 400 / 400 Other: # Voids 3 2 # Bowel Movements 0 Narrative: A&O x 3 CN II-XII intact Motor 5/5 UE/LE Collar in place Intact sensation throughout Assessment and Plan - Plan 78yoF with right c1 anterior and posterior arch fractures (Navi) with right occipital condyle fracture, question minor dens fracture. MRI C-spine: ligamentous injury at C1 posteriorly, rheumatoid pannus behind C2 ( not hematoma). Plan: 10/30/18 Will attempt mobilization with a [place] J collar all the time. If neck pain is persistent or not improved next few days, could consider a surgical stabilization procedure. At this point, this fracture morphology should heal, will attempt symptomatic pain relief. Her HOB can be up as tolerated and she can mobilize out of bed with assistance and PT. If neck pain is worsening, would reimage with lateral C-spine xrays and or CT. May eat. Discussed prognosis with patient and her daughters-- prolonged neck immobilzation but we will take this day by day symptomatically. 10/31/18 Pain improved overnight. Has been sitting up but not yet out of bed -- may get out of bed with collar as limited by pain -- PT . Mobilize with PT as tolerated by patient's pain, will need a walker. Collar all the time. Will continue to monitor pain level. ADAT. HOB up as tolerated. OOB as tolerated with assist. 11/01/18 Fever yesterday improved after voiding, UA negative day prior. If febrile again , repeat UA. Collar all the time-- xrays look stable -- ok to transfer to floor PT continue OOB as tolerated with assist. Switched to Tylenol prn for pain as she was getting confused with narcotics. Will continue to follow. 11/02/18 [employer] adjust [place] J collar to smaller if possible. Collar all the time-- xrays look stable -- ok to transfer to floor Fever workup per medicine-- ?possible UTI Tylenol for pain control. If percocet is too strong (with confusion), consider Tramadol or Hydrocodone Will follow peripherally given that she will not need surgery f/u 6 weeks ap/lat C-spine xrays
[2018-11-02] MEDS: amLODIPine 5 MG Tablet PO SCH (11:04)
[2018-11-02] MEDS: Furosemide 20 MG Tablet PO SCH (11:06)
[2018-11-02] MEDS: Atenolol 50 MG Tablet PO SCH (11:06)
[2018-11-02] MEDS: Senna/Docusate Sodium 8.6/50 MG Tablet PO SCH ×2 (11:07→21:23)
[2018-11-02] MEDS: Famotidine 20 MG Tablet PO SCH ×2 (11:07→21:23)
[2018-11-02] MEDS: Famotidine PF Inj 20 MG/2 ML Vial IV.PUSH SCH ×2 (11:07→21:25)
[2018-11-02 13:49] LABS: Bacteria,Urine Rare /hpf; Bilirubin,Urine Negative (Negative); Calcium Oxalate Crystals,Urine Rare /hpf; Clarity,Urine Clear (Clear); Color,Urine Yellow (Yellw/Straw); Glucose,Urine (UA) Negative (Negative); Leukocyte Esterase,Urine Trace (Negative); Nitrite,Urine Negative (Negative); Renal Epithelial Cells,Urine <1 /hpf; Specific Gravity,Urine 1.013 (1.002-1.035); Squamous Epithelial Cell,Urine 2 /hpf (0-5); Transitional Epi Cells,Urine <1 /hpf
[2018-11-02] MEDS ORDERED: TOFACITINIB 10 MG PO SCH (21:00)
[2018-11-02] MEDS: Latanoprost 0.005% Opth Drops 2.5 ML Bottle EACH EYE SCH (21:25)
[2018-11-03] MEDS: Heparin - SQ 10,000 UNITS/ML Vial SQ SCH ×3 (05:48→23:09)
[2018-11-03] MEDS: Chlorhexidine Gluconate 2% 1 Pack (2 Cloths) TOPICAL SCH (05:49)
[2018-11-03] MEDS: Levothyroxine 112 MCG Tablet PO SCH (06:00)
--- NOTE | 2018-11-03 07:42 | P.PNIM ---
Subjective Interval history: f/u; cervical fracture in no acute distress. looks comfortable. pain is controlled. no fever. d/w the RN and no acute issues over night. Physical Exam Vital signs: Vital Signs 11/02/18 08:00 11/02/18 08:08 11/02/18 08:23 Temperature 97.9 F Pulse Rate 63 60 Respiratory Rate 22 25 H Blood Pressure 124/59 L 124/59 L 133/63 Pulse Oximetry 98 98 11/02/18 09:00 11/02/18 09:23 11/02/18 10:00 Temperature Pulse Rate 58 L 56 L Respiratory Rate 31 H 24 Blood Pressure 122/56 L Pulse Oximetry 97 98 11/02/18 10:02 11/02/18 10:23 11/02/18 11:00 Temperature Pulse Rate 57 L 58 L Respiratory Rate 26 H 25 H Blood Pressure 132/62 122/60 Pulse Oximetry 98 99 11/02/18 11:23 11/02/18 12:00 11/02/18 13:00 Temperature 98.1 F Pulse Rate 62 57 L 60 Respiratory Rate 30 H 21 26 H Blood Pressure 149/64 H 139/63 132/60 Pulse Oximetry 98 95 99 11/02/18 14:00 11/02/18 16:00 11/02/18 17:00 Temperature 97.6 F Pulse Rate 56 L 56 L 51 L Respiratory Rate 23 20 20 Blood Pressure 128/63 112/54 L 112/56 L Pulse Oximetry 99 98 97 11/02/18 18:00 11/02/18 19:23 11/02/18 20:00 Temperature Pulse Rate 59 L 63 Respiratory Rate 21 Blood Pressure 140/60 146/67 H Pulse Oximetry 98 97 11/02/18 20:23 11/02/18 21:00 11/02/18 22:00 Temperature 97.4 F L Pulse Rate 58 L 59 L 63 Respiratory Rate 22 25 H 22 Blood Pressure 138/63 139/64 134/61 Pulse Oximetry 98 97 97 11/02/18 22:23 11/02/18 23:00 11/03/18 00:00 Temperature 97.8 F Pulse Rate 61 62 66 Respiratory Rate 23 24 25 H Blood Pressure 155/67 H 145/67 H Pulse Oximetry 98 98 97 11/03/18 01:00 11/03/18 02:00 11/03/18 03:00 Temperature Pulse Rate 62 59 L 60 Respiratory Rate 21 28 H Blood Pressure 116/68 152/68 H Pulse Oximetry 98 99 11/03/18 04:00 11/03/18 05:00 11/03/18 06:00 Temperature 97.8 F Pulse Rate 61 68 59 L Respiratory Rate 22 22 22 Blood Pressure 142/65 H 145/65 H 139/68 Pulse Oximetry 99 94 L 98 Intake & Output 11/02/18 11/03/18 11/03/18 18:59 06:59 18:59 Intake Total 760 / 760 520 / 520 Output Total 975 / 975 650 / 650 Balance -215 / -215 -130 / -130 Weight 60.8 kg Intake: IV 200 / 200 100 / 100 Doxy 100 Inj 100 MG In NS Inj 100 / 100 100 / 100 100 ML @ 100 mls/hr IV.SIG Q12H ERENDIRA Rx#:[id number] KCl 20 mEq Premix Inj 20 meq In 100 / 100 100 ml @ 50 mls/hr IV.SIG Q2H PRN Rx#:[id number] Oral 560 / 560 420 / 420 Output: Urine 975 / 975 650 / 650 Other: # Voids 1 Date of Last Bowel Movement 11/02/18 11/02/18 # Bowel Movements 1 0 Constitutional no acute distress Routine Neck Exam Comments: cervical collar in place. Routine Respiratory Exam Present CTA bilaterally Routine Cardiovascular Exam Present RRR Routine Abdominal Exam Present soft Routine Extremities Exam Comments: no pedal edema. Routine Neurological Exam Present alert and oriented X3 Results Labs CBC & Chem 7: 11/01/18 05:12 11/02/18 05:07 Labs: Microbiology 11/01/18 15:38 Blood - Peripheral Aerobic Blood Culture - Preliminary No growth in 1 day 11/01/18 15:38 Blood - Peripheral Anaerobic Blood Culture - Preliminary No growth in 1 day 11/01/18 13:34 Blood - Peripheral Aerobic Blood Culture - Preliminary No growth in 1 day 11/01/18 13:34 Blood - Peripheral Anaerobic Blood Culture - Preliminary No growth in 1 day Assessment and Plan Plan A/P C1 burst fracture/C2 avulsion fracture/Right occipital condyle fracture S/p mechanical fall at [place]. Non-operative management planned by neurosurgery and surgery. MRI C spine showed no epidural hematoma. -ASA restarted. -Pain control with a bowel regimen. -PT/OT consults. -Neurosurgery following. Stable for transfer to floor. -continue cervical collar. History of CAD s/p stents/History of essential hypertension/History of dyslipidemia Stable. No chest pain at this time. -Aspirin restarted. -Continue home antihypertensives and statin. Fever/Cough Nonproductive. Imaging with ? infiltrates. UA unremarkable. Repeat CXR without evidence of infection. -continue IV doxycycline. -sputum culture and urine cultures pending. History of rheumatoid arthritis No flared up. -Continue DMARDs. History of hypothyroidism Stable. -Continue home dose of Synthroid. Constipation Has not been eating much. -ADAT. -continue bowel regimen. Add Miralax x 1. PPx: Heparin Discharge Planning: home with [facility] tomorrow if stable- pending the cultures. Progress Note: Quality VTE Deep Vein Thrombosis/Pulmonary Embolism Present on Admission: No
--- NOTE | 2018-11-03 09:10 | P.PNNS ---
Subjective Interval history: doing well, reports neck feels sore, no neuro changes overnight Physical Exam Vital signs: Vital Signs 11/02/18 09:23 11/02/18 10:00 11/02/18 10:02 Temperature Pulse Rate 56 L 57 L Respiratory Rate 24 26 H Blood Pressure 122/56 L 132/62 Pulse Oximetry 98 98 11/02/18 10:23 11/02/18 11:00 11/02/18 11:23 Temperature Pulse Rate 58 L 62 Respiratory Rate 25 H 30 H Blood Pressure 122/60 149/64 H Pulse Oximetry 99 98 11/02/18 12:00 11/02/18 13:00 11/02/18 14:00 Temperature 98.1 F Pulse Rate 57 L 60 56 L Respiratory Rate 21 26 H 23 Blood Pressure 139/63 132/60 128/63 Pulse Oximetry 95 99 99 11/02/18 16:00 11/02/18 17:00 11/02/18 18:00 Temperature 97.6 F Pulse Rate 56 L 51 L 59 L Respiratory Rate 20 20 21 Blood Pressure 112/54 L 112/56 L 140/60 Pulse Oximetry 98 97 98 11/02/18 19:23 11/02/18 20:00 11/02/18 20:23 Temperature 97.4 F L Pulse Rate 63 58 L Respiratory Rate 22 Blood Pressure 146/67 H 138/63 Pulse Oximetry 97 98 11/02/18 21:00 11/02/18 22:00 11/02/18 22:23 Temperature Pulse Rate 59 L 63 61 Respiratory Rate 25 H 22 23 Blood Pressure 139/64 134/61 Pulse Oximetry 97 97 98 11/02/18 23:00 11/03/18 00:00 11/03/18 01:00 Temperature 97.8 F Pulse Rate 62 66 62 Respiratory Rate 24 25 H 21 Blood Pressure 155/67 H 145/67 H 116/68 Pulse Oximetry 98 97 98 11/03/18 02:00 11/03/18 03:00 11/03/18 04:00 Temperature 97.8 F Pulse Rate 59 L 60 61 Respiratory Rate 28 H 22 Blood Pressure 152/68 H 142/65 H Pulse Oximetry 99 99 11/03/18 05:00 11/03/18 06:00 Temperature Pulse Rate 68 59 L Respiratory Rate 22 22 Blood Pressure 145/65 H 139/68 Pulse Oximetry 94 L 98 Intake & Output 11/02/18 11/03/18 11/03/18 18:59 06:59 18:59 Intake Total 760 / 760 520 / 520 Output Total 975 / 975 650 / 650 Balance -215 / -215 -130 / -130 Weight 60.8 kg Intake: IV 200 / 200 100 / 100 Doxy 100 Inj 100 MG In NS Inj 100 / 100 100 / 100 100 ML @ 100 mls/hr IV.SIG Q12H ERENDIRA Rx#:[id number] KCl 20 mEq Premix Inj 20 meq In 100 / 100 100 ml @ 50 mls/hr IV.SIG Q2H PRN Rx#:[id number] Oral 560 / 560 420 / 420 Output: Urine 975 / 975 650 / 650 Other: # Voids 1 Date of Last Bowel Movement 11/02/18 11/02/18 # Bowel Movements 1 0 Narrative: Resting comfortably in bed A&O x 3 CN II-XII intact Motor 5/5 UE/LE Sensory intact to light touch throughout Industry J Collar in place Assessment and Plan - Plan 78yoF with right c1 anterior and posterior arch fractures (Navi) with right occipital condyle fracture, question minor dens fracture. MRI C-spine: ligamentous injury at C1 posteriorly, rheumatoid pannus behind C2 ( not hematoma). Plan: 10/30/18 Will attempt mobilization with a [place] J collar all the time. If neck pain is persistent or not improved next few days, could consider a surgical stabilization procedure. At this point, this fracture morphology should heal, will attempt symptomatic pain relief. Her HOB can be up as tolerated and she can mobilize out of bed with assistance and PT. If neck pain is worsening, would reimage with lateral C-spine xrays and or CT. May eat. Discussed prognosis with patient and her daughters-- prolonged neck immobilzation but we will take this day by day symptomatically. 10/31/18 Pain improved overnight. Has been sitting up but not yet out of bed -- may get out of bed with collar as limited by pain -- PT . Mobilize with PT as tolerated by patient's pain, will need a walker. Collar all the time. Will continue to monitor pain level. ADAT. HOB up as tolerated. OOB as tolerated with assist. 11/01/18 Fever yesterday improved after voiding, UA negative day prior. If febrile again , repeat UA. Collar all the time-- xrays look stable -- ok to transfer to floor PT continue OOB as tolerated with assist. Switched to Tylenol prn for pain as she was getting confused with narcotics. Will continue to follow. 11/02/18 [employer]otec adjust [place] J collar to smaller if possible. Collar all the time-- xrays look stable -- ok to transfer to floor Fever workup per medicine-- ?possible UTI Tylenol for pain control. If percocet is too strong (with confusion), consider Tramadol or Hydrocodone Will follow peripherally given that she will not need surgery f/u 6 weeks ap/lat C-spine xrays 11/03/18 neuro stable cont cervical collar at all times, dc planning for rehab placement follow up neurosurgery office in 6 weeks with ap/lat c-spine xrays will sign off, call prn
[2018-11-03] MEDS: Atenolol 50 MG Tablet PO SCH (09:44)
[2018-11-03] MEDS: Senna/Docusate Sodium 8.6/50 MG Tablet PO SCH ×2 (09:44→23:06)
[2018-11-03] MEDS: Furosemide 20 MG Tablet PO SCH (09:45)
[2018-11-03] MEDS: amLODIPine 5 MG Tablet PO SCH (09:45)
[2018-11-03] MEDS: Famotidine 20 MG Tablet PO SCH ×2 (09:46→23:08)
[2018-11-03] MEDS: Famotidine PF Inj 20 MG/2 ML Vial IV.PUSH SCH ×2 (09:46→23:10)
[2018-11-03] MEDS ORDERED: [UNRECOGNIZED DRUG - OTHER] PO SCH (21:00)
[2018-11-03] MEDS: Acetaminophen 325 MG Tablet PO PRN (23:08)
[2018-11-03] MEDS: Latanoprost 0.005% Opth Drops 2.5 ML Bottle EACH EYE SCH (23:12)
[2018-11-03] MEDS: [UNRECOGNIZED DRUG - OTHER] PO SCH (23:12)
[2018-11-04] MEDS: Acetaminophen 325 MG Tablet PO PRN (03:51)
[2018-11-04] MEDS: Chlorhexidine Gluconate 2% 1 Pack (2 Cloths) TOPICAL SCH (04:21)
[2018-11-04] MEDS: Levothyroxine 112 MCG Tablet PO SCH (06:09)
[2018-11-04] MEDS: Heparin - SQ 10,000 UNITS/ML Vial SQ SCH ×3 (06:09→21:34)
[2018-11-04] MEDS: amLODIPine 5 MG Tablet PO SCH (09:44)
[2018-11-04] MEDS: [UNRECOGNIZED DRUG - OTHER] PO SCH ×2 (09:44→21:34)
[2018-11-04] MEDS: Famotidine 20 MG Tablet PO SCH ×2 (09:45→21:34)
[2018-11-04] MEDS: Senna/Docusate Sodium 8.6/50 MG Tablet PO SCH ×2 (09:45→21:34)
[2018-11-04] MEDS: Furosemide 20 MG Tablet PO SCH (09:46)
[2018-11-04] MEDS: Atenolol 50 MG Tablet PO SCH (09:46)
[2018-11-04] MEDS: Famotidine PF Inj 20 MG/2 ML Vial IV.PUSH SCH (09:46)
--- NOTE | 2018-11-04 10:36 | P.PNIM ---
Subjective Interval history: in no acute distress. pain is fairly controlled. no new complaints. daughter at the bedside. Physical Exam Vital signs: Vital Signs 11/03/18 11:00 11/03/18 11:43 11/03/18 12:00 Temperature 98.9 F Pulse Rate 56 L 57 L 55 L Respiratory Rate 22 23 25 H Blood Pressure 147/68 H Pulse Oximetry 97 96 97 11/03/18 12:19 11/03/18 15:58 11/03/18 16:00 Temperature 98.7 F Pulse Rate 59 L Respiratory Rate 27 H Blood Pressure 131/64 140/65 Pulse Oximetry 97 11/03/18 16:19 11/03/18 20:00 11/03/18 20:42 Temperature 98.9 F Pulse Rate 75 Respiratory Rate 20 Blood Pressure 125/68 138/63 Pulse Oximetry 86 L 94 L 11/04/18 00:00 11/04/18 04:00 11/04/18 08:00 Temperature 98.7 F 97.8 F Pulse Rate 80 60 52 L Respiratory Rate 18 18 18 Blood Pressure 129/60 123/68 108/54 L Pulse Oximetry 95 99 100 Intake & Output 11/03/18 11/04/18 11/04/18 18:59 06:59 18:59 Intake Total 700 / 700 100 / 100 Output Total 700 / 700 Balance 0 / 0 100 / 100 Weight 74.2 kg Intake: IV 100 / 100 100 / 100 Doxy 100 Inj 100 MG In NS Inj 100 / 100 100 / 100 100 ML @ 100 mls/hr IV.SIG Q12H ERENDIRA Rx#:[id number] Oral 600 / 600 Output: Urine Amount (Catheter) 700 / 700 Female External 700 / 700 Other: # Voids 2 # Urine Diapers 1 Date of Last Bowel Movement 11/03/18 11/02/18 11/02/18 # Bowel Movements 2 Constitutional no acute distress Routine Neck Exam Comments: neck in cervical collar. Routine Respiratory Exam Present CTA bilaterally Routine Cardiovascular Exam Present RRR Routine Abdominal Exam Present soft Routine Extremities Exam Comments: no pedal edema. Routine Neurological Exam Present alert and oriented X3 Urinary Catheter Management Female External: Cath placed during this visit: no Results Labs CBC & Chem 7: 11/01/18 05:12 11/02/18 05:07 Labs: Microbiology 11/02/18 13:20 Clean Catch Urine Urine Culture - Final Viridans streptococcus grp 11/01/18 15:38 Blood - Peripheral Aerobic Blood Culture - Preliminary No growth in 2 days 11/01/18 15:38 Blood - Peripheral Anaerobic Blood Culture - Preliminary No growth in 2 days 11/01/18 13:34 Blood - Peripheral Aerobic Blood Culture - Preliminary No growth in 2 days 11/01/18 13:34 Blood - Peripheral Anaerobic Blood Culture - Preliminary No growth in 2 days Assessment and Plan Plan A/P C1 burst fracture/C2 avulsion fracture/Right occipital condyle fracture S/p mechanical fall at [facility]. Non-operative management planned by neurosurgery and surgery. MRI C spine showed no epidural hematoma. -ASA restarted. -Pain control with a bowel regimen. -PT/OT consults. -Neurosurgery following. Stable for diacharge. -continue cervical collar. History of CAD s/p stents/History of essential hypertension/History of dyslipidemia Stable. No chest pain at this time. -Aspirin restarted. -Continue home antihypertensives and statin. Fever/Cough Nonproductive. Imaging with ? infiltrates. UA unremarkable. Repeat CXR without evidence of infection. -will switch to oral levaquin. History of rheumatoid arthritis No flared up. -Continue DMARDs. History of hypothyroidism Stable. -Continue home dose of Synthroid. Constipation resolved. PPx: Heparin Discharge Planning: d/w the patient and daughter today; now they're willing to proceed with rehab. case management consulted. dc planning; SNF when arrangements made. f/u; pcp and neurosurgery. see med list. E-Foarsce was consulted before discharge. time spent 35 min. Progress Note: Quality VTE Deep Vein Thrombosis/Pulmonary Embolism Present on Admission: No
--- NOTE | 2018-11-04 10:37 | P.DS ---
DS: Providers Date of admission: 10/30/18 10:11 Primary care physician: Camelia George, Consults: 10/30/18 10:12 Consult to Neurosurgery Stat Consulting Provider: Shiv Galvan For STAT consult, spoke directly to:: Spoke with Dr. Galvan Reason for Consultation: Fracture cervical spine C1 possible C2 with epidural hematoma. Notified:: Physician Spoke with:: Ulysses/OR RELAY Date Notified:: 10/30/18 Time Notified:: 10:38 Ordering Provider: ANNA 10/30/18 15:30 HUB Only Consult Order Routine Consulting Provider: Calli Mccurdy 11/01/18 09:03 Consult to Hospitalist Routine Consulting Provider: Nathan Guzmán Reason for Consultation: comanagement-- transfer to primary service Notified:: Service Spoke with:: Natalie Date Notified:: 11/01/18 Time Notified:: 09:20 Comments:: Waiting sales enablement consultant back -- [place] [id number] Ordering Provider: KI 11/02/18 04:30 HUB Only Consult Order Routine Consulting Provider: Shiv Galvan Brief History from admission: 78yF presenting with cervical spine injury. The patient lives on her own ( daughter and son-in-law live next door) and says that last night she was trying to move a pillow from her bed to her rocking chair. She is unsure if she tripped but says that she fell forward, hitting her head on the wall and getting wedged between the bed and the wall. She says that she was lying on the floor for most of the night but this morning was able to crawl to the foot of the bed, retrieved her cell phone, and called her daughter for help. She had soiled herself overnight but states that this was because of immobility and not because she couldn't control her bowel/ bladder. She was able to walk to the shower with assistance and bathe before presenting to the ED at [facility]. There, she had a CT of her brain and C spine performed, which showed fractures of C1/C2 and a possible spinal epidural hematoma. She was transferred to [place] for neurosurgical evaluation. She admits to moderate "aching" neck pain but denies numbness/ tingling/ weakness of her extremities, back pain, or saddle anesthesia. She takes 81 mg aspirin daily for a history of CAD s/p stents (in 1990s), last dose yesterday. Denies use of any other anticoagulants/ antiplatelets. Drug Safety Assistant is Dr. Hernandez. History of rheumatoid arthritis, currently on Xeljanz and methotrexate. DS: Summary C1 burst fracture/C2 avulsion fracture/Right occipital condyle fracture S/p mechanical fall at [place]. Non-operative management planned by neurosurgery and surgery. MRI C spine showed no epidural hematoma. -ASA restarted. -Pain control with a bowel regimen. -PT/OT consults. -Neurosurgery following. Stable for diacharge. -continue cervical collar. History of CAD s/p stents/History of essential hypertension/History of dyslipidemia Stable. No chest pain at this time. -Aspirin restarted. -Continue home antihypertensives and statin. Fever/Cough Nonproductive. Imaging with ? infiltrates. UA unremarkable. Repeat CXR without evidence of infection. -will switch to oral levaquin. History of rheumatoid arthritis No flared up. -Continue DMARDs. History of hypothyroidism Stable. -Continue home dose of Synthroid. Time Spent with Patient Total time spent providing and/or coordinating discharge services: Greater than 30 minutes Specific discharge activities: 35 min. Quality: VTE Deep Vein Thrombosis/Pulmonary Embolism Present on Admission: No Exam Narrative Exam Narrative: patient in no acute distress. S1/S2 heard/ abdomen is soft/ no pedal edema/ neck in cervical collar/no pedal edema/ patient is awake and fully oriented. Results Procedures completed during hospitalization: none. Labs on day of discharge: Preliminary micro results at discharge 11/01/18 15:38 Aerobic Blood Culture - Preliminary Blood - Peripheral No growth in 2 days Anaerobic Blood Culture - Preliminary No growth in 2 days 11/01/18 13:34 Aerobic Blood Culture - Preliminary Blood - Peripheral No growth in 2 days Anaerobic Blood Culture - Preliminary No growth in 2 days Impressions ITS Impressions Cervical Spine MRI 10/30/18 09:49 CONCLUSION: Neural foramina compromise at multiple levels with effacement of the anterior CSF space C5-6 and C6-7 without any significant thecal sac stenosis. Cervical Spine CT 10/30/18 12:55 CONCLUSION: There are fractures of the lateral mass of C1 on the right and basioccipital with tiny bony fragment protruding adjacent to the tip of the dens at the junction of the lateral mass of C1 without any significant compromise to the exiting nerve roots or the thecal sac. These fractures were not appreciated on the patient's MRI examination due to technique and superimposed degenerative changes atlantoaxial space. No appreciable subluxation. Cervical Spine X-Ray 11/01/18 00:00 CONCLUSION: 1. Very limited views of the cervical spine. No obvious fracture. 2. Extensive facet hypertrophy and degeneration throughout the cervical spine Chest X-Ray 11/01/18 11:48 CONCLUSION: 1. Stable elevation of the right hemidiaphragm with no acute infiltrate. 2. Borderline heart size with mild interstitial prominence suggesting some degree of vascular congestion or volume overload. 3. No significant change from prior. Discharge Plan Physicians Team Primary Care Provider: Camelia George Attending Provider: Clayton Gonzales Other Providers: Shiv Galvan ; Samuel Aviles ; [place] ; [employer] ; Christian Franco ; Jayashree Stevens ; Cyril Garcia ; Luz Castillo ; Len Chou ; Dorothy Valenzuela ; Calli Mccurdy ; Nathan Guzmán Rxs /Orders / Referrals /Forms Prescriptions: No Action atorvastatin 10 mg Tablet 10 mg PO DAILY RF: 0 amlodipine 2.5 mg Tablet 2.5 mg PO DAILY RF: 0 atenolol 50 mg Tablet 50 mg PO DAILY RF: 0 bevacizumab [Avastin] 25 mg/mL Solution 1 ml RF: 0 levothyroxine 137 mcg Tablet 137 mcg PO DAILY RF: 0 potassium chloride 10 mEq Tablet Extended Release 10 meq PO DAILY RF: 0 aspirin 81 mg Tablet,Chewable 81 mg PO DAILY RF: 0 furosemide 20 mg Tablet 20 mg PO DAILY RF: 0 methotrexate 2.5 mg/mL Solution 10 mg/m2 PO QWEEK RF: 0 tofacitinib [Xeljanz] 5 mg Tablet 2 tab PO BID RF: 0 latanoprost 1 drop EACH EYE HS RF: 0 Referrals: Camelia George DO [Primary Care Provider] - See Instructions Status ED Status: Left Department
[2018-11-04] MEDS ORDERED: Famotidine PF Inj 20 MG/2 ML Vial IV.PUSH PRN (21:00)
[2018-11-04] MEDS: Latanoprost 0.005% Opth Drops 2.5 ML Bottle EACH EYE SCH (21:41)
[2018-11-05 00:25] VITALS: RESP 18
[2018-11-05] MEDS: Levothyroxine 112 MCG Tablet PO SCH (06:00)
[2018-11-05] MEDS: Heparin - SQ 10,000 UNITS/ML Vial SQ SCH ×2 (06:01→15:00)
[2018-11-05] MEDS ORDERED: levoFLOXacin 500 MG Tablet PO SCH (09:00)
[2018-11-05] MEDS: [UNRECOGNIZED DRUG - OTHER] PO SCH (09:06)
[2018-11-05] MEDS: amLODIPine 5 MG Tablet PO SCH (09:08)
[2018-11-05] MEDS: Atenolol 50 MG Tablet PO SCH (09:08)
[2018-11-05] MEDS: Famotidine 20 MG Tablet PO SCH (09:09)
[2018-11-05] MEDS: Furosemide 20 MG Tablet PO SCH (09:09)
[2018-11-05] MEDS: Senna/Docusate Sodium 8.6/50 MG Tablet PO SCH (09:10)
--- NOTE | 2018-11-05 11:40 | P.PNIM ---
Subjective Interval history: in no acute distress. looks fairly comfortable. no new complaints. Physical Exam Vital signs: Vital Signs 11/04/18 12:00 11/04/18 14:00 11/04/18 15:27 Temperature 97.0 F L Pulse Rate 53 L 53 L 53 L Respiratory Rate 20 Blood Pressure 131/60 Pulse Oximetry 93 L 11/04/18 16:00 11/04/18 18:00 11/04/18 19:56 Temperature 97.9 F 98.1 F Pulse Rate 52 L 55 L 53 L Respiratory Rate 18 20 Blood Pressure 132/60 139/65 Pulse Oximetry 98 97 11/05/18 00:00 11/05/18 00:24 11/05/18 06:33 Temperature 98.3 F 98.0 F Pulse Rate 58 L 57 L Respiratory Rate 18 18 18 Blood Pressure 152/67 H 126/59 L Pulse Oximetry 99 93 L 11/05/18 08:00 Temperature 98.7 F Pulse Rate 56 L Respiratory Rate 18 Blood Pressure 146/65 H Pulse Oximetry 94 L Intake & Output 11/04/18 11/05/18 11/05/18 18:59 06:59 18:59 Intake Total 200 / 200 Balance 200 / 200 Intake: Oral 200 / 200 Other: Date of Last Bowel Movement 11/04/18 11/04/18 # Bowel Movements 1 Constitutional no acute distress Routine Respiratory Exam Present CTA bilaterally Routine Cardiovascular Exam Present RRR Routine Abdominal Exam Present soft Routine Extremities Exam Comments: no pedal edema. Routine Neurological Exam Present alert and oriented X3 Urinary Catheter Management Female External: Cath placed during this visit: no Results Labs CBC & Chem 7: 11/01/18 05:12 11/02/18 05:07 Labs: Microbiology 11/01/18 15:38 Blood - Peripheral Aerobic Blood Culture - Preliminary No growth in 4 days 11/01/18 15:38 Blood - Peripheral Anaerobic Blood Culture - Preliminary No growth in 4 days 11/01/18 13:34 Blood - Peripheral Aerobic Blood Culture - Preliminary No growth in 4 days 11/01/18 13:34 Blood - Peripheral Anaerobic Blood Culture - Preliminary No growth in 4 days 11/02/18 13:20 Clean Catch Urine Urine Culture - Final Viridans streptococcus grp Procedures Procedures: none. Assessment and Plan Plan A/P C1 burst fracture/C2 avulsion fracture/Right occipital condyle fracture S/p mechanical fall at [facility]. Non-operative management planned by neurosurgery and surgery. MRI C spine showed no epidural hematoma. -ASA restarted. -Pain control with a bowel regimen. -PT/OT consults. -Neurosurgery following. Stable for diacharge. -continue cervical collar. History of CAD s/p stents/History of essential hypertension/History of dyslipidemia Stable. No chest pain at this time. -Aspirin restarted. -Continue home antihypertensives and statin. Fever/Cough Nonproductive. Imaging with ? infiltrates. UA unremarkable. Repeat CXR without evidence of infection. -will switch to oral levaquin. History of rheumatoid arthritis No flared up. -Continue DMARDs. History of hypothyroidism Stable. -Continue home dose of Synthroid. Constipation resolved. PPx: Heparin Discharge Planning: case management consulted. dc planning; SNF when arrangements made. f/u; pcp and neurosurgery. see med list. E-Foarsce was consulted before discharge. time spent 35 min. Progress Note: Quality VTE Deep Vein Thrombosis/Pulmonary Embolism Present on Admission: No
[2018-11-05 12:49] VITALS: BP 149/68; PULSE 57; TEMP 99.1; O2SAT 92
== END 2018-11-05 15:16 | DRG 86 ==
LOC: NEPE 09:30 → NEDH 10:11 → N03 12:00 → N05 11-03 17:19
PROVIDERS: ADMIT Internal Medicine; ATTEND Internal Medicine
CPT/HCPCS: 71010; 71045; 72040; 72125; 72141; 76937; 80048; 80053; 81001; 82550; 82552; 83735; 85025; 85027; 85576; 85610; 85730; 86850; 86900; 86901; 87040; 87070; 87086; 87205; 87641; 94150; 97110; 97116; 97163; 97166; 97530; 99285; J1644; J3480; J7030; J8610; L0172